=== PATIENT | male | born 1985 | race Caucasian/White ===

== ENCOUNTER 2025-06-07 12:13 | Observation (INO) | payer OTHER, SELFPAY ==
[2025-06-07] VITALS (10 sets, daily range): BP systolic 100–138; BP diastolic 63–99; PULSE 28–103; RESP 17–22; TEMP 36.6–37.1; O2SAT 95–100; BMI 24.0
--- NOTE | 2025-06-07 | ECHO_ITS ---
Patient Info Name: Siva Chappell Age: 40 years : 1985 Gender: Male Ht: 64 in Wt: 144 lbs BSA: 1.73 m2 HR: 93 bpm BP: 105 / 72 mmHg Heart Rhythm: Sinus Rhythm Technical Quality: Good Exam Date: 06/07/2025 4:01 PM Patient Status: E Admit Date: 06/07/2025 Exam Type: CA echo doppler w bubble study Complete two-dimensional, color flow and Doppler transthoracic echocardiogram is performed with agitated saline. Staff Referring Physician: Jabari Sandoval Watch Assembly Instructor: Piper Andrade Attending Provider: Jabari Sandoval Contrast/Agitated Saline Contrast/Ag. Saline: Agitated Saline Amount: 20.00 ml Existing IV Access: Yes IV Access Condition: patent with no signs of infiltration Summary 1. Left ventricular systolic function is normal, estimated at 55-60. 2. The prosthetic aortic valve has calcification. 3. 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 DVI 0.125. 4. There is mild regurgitation of the prosthetic aortic valve. 5. The aortic root size at the sinus of Valsalva is mildly dilated. Left Ventricle Left ventricular chamber dimension is normal. Left ventricular systolic function is normal, estimated at 55-60. There is no increased left ventricular wall thickness. Left ventricular septal wall motion is normal. The left ventricular diastolic function is indeterminate. Right Ventricle Right ventricular chamber dimension is normal. Right ventricular systolic function is normal. Left Atria Left atrial chamber dimension is normal. Right Atria Right atrial chamber dimension is normal. Atrial Septum Intact interatrial septum visualized by agitated saline imaging. Aortic Valve The prosthetic aortic valve has calcification. 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 DVI 0.125. There is mild regurgitation of the prosthetic aortic valve. Pulmonic Valve The pulmonic valve is normal. There is no pulmonic valve stenosis. There is no pulmonic regurgitation. Mitral Valve The mitral valve has normal leaflets. There is no mitral valve stenosis. There is no mitral valve regurgitation. Tricuspid Valve The tricuspid valve leaflets are normal. There is no significant tricuspid valve stenosis. There is no tricuspid valve regurgitation. Pericardium/Pleural The pericardium appears normal. There is no pericardial effusion. Inferior Vena Cava Normal inferior vena cava with >50% collapse upon inspiration consistent with normal right atrial pressure, 5 mmHg. Aorta The aortic root size at the sinus of Valsalva is mildly dilated. The prox ascending aorta size is normal. Left Ventricular Outflow Tract Name Value Normal LVOT 2D LVOT Diameter 2.9 cm LVOT Doppler LVOT Peak Velocity 59 cm/s LVOT Peak Gradient 1 mmHg LVOT Mean Gradient 1 mmHg LVOT VTI 13 cm LVOT VTI/AV VTI Ratio 0.1 LVOT Stroke Volume 84 ml LVOT CO 6.4 l/min LVOT CI 3.7 l/min/m2 Pulmonic Valve Name Value Normal RVOT Doppler RVOT Peak Velocity 53 cm/s RVOT Peak Gradient 1 mmHg PV Doppler PV Peak Velocity 73 cm/s PV Peak Gradient 2 mmHg Mitral Valve Name Value Normal MV Diastolic Function MV E Peak Velocity 91 cm/s MV A Peak Velocity 43 cm/s MV E/A 2.1 MV Decel Time (PW) 135 ms MV Annular TDI MV E/e' (Septal) 18.4 MV E/e' (Lateral) 18.3 MV E/e' (Average) 18.3 Tricuspid Valve Name Value Normal Estimated PAP/RSVP RA Pressure 5 mmHg <=5 TV Annular TDI TV Lateral Shawanda s' Velocity 8.8 cm/s >=9.5 Aorta Name Value Normal Ascending Aorta Ao Root Diameter (MM) 2.6 cm Ao Root Diam Index (MM) 1.5 cm/m2 Aortic Valve Name Value Normal AV Doppler AV Peak Velocity 493 cm/s AV Peak Gradient 97 mmHg AV Mean Gradient 69 mmHg AV VTI 104 cm AV Area (Cont Eq VTI) 0.8 cm2 >=3.0 AV Area (Cont Eq Filipe) 0.8 cm2 AV DI (Filipe) 0.12 AV Regurgitation 2D LVOT Area 6.4 cm2 Ventricles Name Value Normal LV Dimensions 2D/MM IVS Diastolic Thickness (2D) 0.8 cm 0.6-1.0 LVID Diastole (2D) 5.6 cm 4.2-5.8 LVIW Diastolic Thickness (2D) 0.8 cm 0.6-1.0 LVID Systole (2D) 4.0 cm 2.5-4.0 LVOT Diameter 2.9 cm LV Mass (2D Cubed) 170.90 g 88.00-224.00 LV Mass Index (2D Cubed) 99 g/m2 49-115 Relative Wall Thickness (2D) 0.30 <=0.42 LV Fractional Shortening/Ejection Fraction 2D/MM LV Fractional Shortening (2D) 29 % 25-43 LV EF (2D Teichholz) 55 % LV Diastolic Volume (4C MOD) 113 ml LV EF (4C MOD) 51 % LV Diastolic Volume (2C MOD) 118 ml LV EF (2C MOD) 51 % LV Diastolic Volume (BP MOD) 119 ml 62-150 LV Diastolic Volume Index (BP MOD) 69 ml/m2 34-74 LV Systolic Volume (BP MOD) 58 ml 21-61 LV Systolic Volume Index (BP MOD) 33 ml/m2 11-31 LV EF (BP MOD) 51 % 52-72 LV Diastolic Length (4C) 8.9 cm LV Systolic Length (4C) 7.6 cm LV Stroke Volume (4C MOD) 57 ml Atria Name Value Normal LA Dimensions LA Dimension (MM) 3.3 cm 3.0-4.0 LA Volume (4C A-L) 39 ml LA Volume (BP A-L) 46 ml RA Dimensions RA Area (4C) 13.5 cm2 <=18.0 Report Signatures
--- NOTE | ~2025-06-07 | CT_ITS ---
EXAMINATION: CTA chest PE protocol, 06/07/2025 13:33 CDT HISTORY: Exertional shortness of breath and chest pain COMPARISON: No comparisons available. TECHNIQUE: CTA examination is obtained with contrast CTA examination technique is performed with arterial phase of contrast-enhancement. 3-D reconstruction with thin MIP axial and MPR coronal imaging is provided Isovue 300, 92cc injected IV. One or more of the following dose reduction techniques were used: automated exposure control, adjustment of the mA and/or kV according to patient size, use of iterative reconstruction technique. FINDINGS: No significant coronary calcification is present ([id number]) LUNGS: No tracheomalacia. No bronchiectasis. Mild pulmonary venous congestion. HEART AND PERICARDIUM: Mild cardiomegaly contrast bolus adequate, no pulmonary embolism identified. AORTA: Normal caliber aorta.. PULMONARY ARTERIES: No pulmonary embolism ADENOPATHY/MEDIASTINUM: None. LIMITED VIEWS OF THE ABDOMEN: Within normal limits. OSSEOUS STRUCTURES: No sclerotic or lytic lesions. No acute rib fractures. Poststernotomy changes. OVERLYING SOFT TISSUES: Unremarkable. THYROID: The thyroid is unremarkable. IMPRESSION: Negative for pulmonary embolism. Mild CHF Reviewed, dictated and finalized at location P.
--- NOTE | ~2025-06-07 | XR_ITS ---
EXAMINATION: XR chest 1V portable COMPARISON: No comparisons available. HISTORY: SOB FINDINGS: The lungs are clear, no effusion. No pneumothorax. Heart is normal size. Mediastinal and hilar contours are within normal limits. Poststernotomy Miscellaneous: None Impression: No acute cardiopulmonary abnormality. Reviewed, dictated and finalized at location P. Impression: No acute cardiopulmonary abnormality.
--- OUTSIDE RECORDS SUMMARY | 2025-06-07 12:40 | XMS_ITS | Clinical Summary ---
Author Organization [facility] [employer] Address [address] [place] [address] Care Team Providers Care Flooring Machine Operator Name Role Phone Raffy Milan MD Primary Care Provider Source Comments [facility] [employer],non-owned Affiliates and Associated Physician Practices is amultiple site organization consisting of ambulatory clinics and hospital sitesin [place], [place], [place] and [place]. This disclosure is being madepursuant to the Care Everywhere program and may not contain all information available regarding this patient. Last updated 18.[facility] [employer] Allergies No known active allergies Medications * Be aware that medications may not be up to date on this document. Alwaysverify current medications with the patient. fluticasone propionate (FLONASE) 50 MCG/ACT nasal sprayIndications :Nasal Signs and Symptoms [place] 2 Sprays into each nostril once daily Reasons: Signs and Symptoms of Nose Diseases 1 Bottle 11/13/19 17 Active albuterol HFA (VENTOLIN HFA) 108 (90 BASE) MCG/ACT inhaler Inhale 2 Puffs by mouth every 6 hours as needed for Wheezing or Cough 1 Inhaler 1 11/13/19 17 Active lisinopril (PRINIVIL; ZESTRIL) 20 MG tablet Take 20 mg by mouth 05/19/20 16 Active warfarin (COUMADIN) 10 MG tablet Take 10 mg by mouth once 03/30/20 16 Active methotrexate (RHEUMATREX) 2.5 MG tablet Take 8 tablets by mouth every 7 days 40 tablet 5 08/18/20 19 Active esomeprazole (NEXIUM) 20 MG capsule Take 20 mg by mouth 2 times daily, before breakfast and supper Active HUMIRA PEN 40 MG/0.4ML injectionIndicat ions:Ulcerative pancolitis without complication (HCC) INJECT 40MG SUBCUTANEOUSLY EVERY 2 WEEKS 2 Pen 11 12/22/19 21 Active Social History Tobacco Use Types Packs/Day Years Used Date Smoking Tobacco: Never Smokeless Tobacco: Never Alcohol Use Standard Drinks/Week Comments Not Currently 0 (1 standard drink = 0.6 oz pur e alcohol) Sex and Gender Information Value Date Recorded Sex Assigned at Not on file Legal Sex Male 9:55 AM SALES ENABLEMENT MANAGER Gender Identity Not on file Sexual Orientation Not on file Last Filed Vital Signs Vital Sign Reading Time Taken Comments Blood Pressure 117/83 06/25/2018 10:24 AM CDT Pulse 66 06/25/2018 10:24 AM CDT Temperature 36.9 C (98.4 F) 06/25/2018 9:58 AM CDT Respiratory Rate 16 06/25/2018 10:24 AM CDT Oxygen Saturation 100% 06/25/2018 10:24 AM CDT Inhaled Oxygen Concentration - - Weight 70.3 kg (155 lb) 06/25/2018 8:08 AM CDT Height 165.1 cm (5' 5) 10/22/2017 9:43 AM SALES ENABLEMENT MANAGER Body Mass Index 25.79 10/22/2017 9:43 AM SALES ENABLEMENT MANAGER Plan of Treatment Health Maintenance Due Date Last Done Comments HIV SCREENING 2002 HEPATITIS C SCREENING 02/09/2005 DTAP/TDAP/TD VACCINES (1 - Tdap) 2006 HEPATITIS B VACCINE (1 of 3 - 19+ 3-dose series) 2006 HPV VACCINE (1 - 3-dose SCDM series) 2014 DEPRESSION SCREENING 09/08/2024 COVID-19 VACCINE ( - 2023-2 5 season) 2025 INFLUENZA VACCINE (#1) 2025 06/09/2017 ZOSTER VACCINE (1 of 2) 2037 HIB VACCINE Aged Out No longer eligi ble based on patient's age to complete this topic MENINGOCOCCAL (Group B) VACC INE SHARED DECISION-MAKING Aged Out No longer eligibl e based on patient's age to complete this topic MENINGOCOCCAL GROUPS A/C/Y/W VACCINE Aged Out No longer eligible b ased on patient's age to complete this topic PNEUMOCOCCAL VACCINE Aged Out No long er eligible based on patient's age to complete this topic Insurance [id number] [place] [address] [facility] [facility] Care Teams Flooring Machine Operator Relationship Specialty [place] [address] [place] [phone] PCP - General Internal Medicine 06/18/18
--- OUTSIDE RECORDS SUMMARY | 2025-06-07 12:40 | XMS_ITS | Encounter Summary ---
Author Organization [facility] Address [address] [place] [address] Care Team Providers Care Carbon Plant Grinder Name Role Phone Unavailable Primary Care Provider Unavailabl e Encounter Details Date Type Department Care Team (Late st Contact Info) Description 01/08/2024 Specialty Pharmacy [facility] - [address] [place] [address] Madiha Gaines, ANP [address] [facility] [address] [place] [address] Social History Tobacco Use Types Packs/Day Years Used Date Smoking Tobacco: Never Smokeless Tobacco: Never Alcohol Use Standard Drinks/Week Comments Not Currently 0 (1 standard drink = 0.6 oz pur e alcohol) Sex and Gender Information Value Date Recorded Sex Assigned at Not on file Legal Sex Male 12:10 PM BELT POLISHER Gender Identity Not on file Sexual Orientation Not on file documented as of this encounter Plan of Treatment Not on file documented as of this encounter Visit Diagnoses Not on filedocumented in this encounter
--- OUTSIDE RECORDS SUMMARY | 2025-06-07 12:40 | XMS_ITS | Clinical Summary ---
Author Organization [facility] [address] Address [address] [place] [address] Care Team Providers Care Airline Lounge Receptionist Name Role Phone Raffy Milan MD Primary Care Provider Allergies No known active allergies Medications esomeprazole DR (NexIUM) 40 mg capsule take 1 capsule by oral route once a day 30 1 05/03/20 16 Active Additional Information Patient taking differently: 20 mg oral, Reported on 08/09/2024 aspirin 81 mg tablet Take one by mouth one time per day 0 0 07/24/20 07 Active adalimumab (HUMIRA PEN) 40 mg/0.8 mL pen injector kit 0.8 mL (40 mg total) Inject once every two weeks Active carvedilol (COREG) 3.125 mg tablet Take 1 tablet (3.125 mg total) by mouth 2 (two) times a day with meals Active vardenafiL (LEVITRA) 20 mg tablet vardenafil 20 mg tablet TAKE 1 TABLET BY MOUTH ONCE DAILY NEEDED FOR 30 DAYS Active amoxicillin (AMOXIL) 500 mg tablet/capsule Take 4 caps (2000 mg) 1 hour prior to procedure on both days. 8 tablet/caps ule 08/26/20 22 Active lisinopriL (PRINIVIL,ZEST RIL) 20 mg tablet Take 1 tablet by mouth once daily 90 tablet 3 05/26/20 25 Active warfarin (COUMADIN) 10 mg tablet TAKE 1 TABLET BY MOUTH ONCE DAILY. TAKE 15 MG ON MONDAYS AND 10 MG (1 TABLET) ALL OTHER DAYS OR DIRECTED BY PHYSICIAN 7 tablet 06/01/20 25 Active lisinopriL (PRINIVIL,ZEST RIL) 20 mg tablet Take 1 tablet by mouth once daily 90 tablet 02/15/20 25 025 Discontinued warfarin (COUMADIN) 10 mg tablet TAKE 1 TAB(10 MG TOTAL)BY MOUTH DAILY TAKE 15 MG ON MONDAYS AND 10 MG ALL OTHER DAYS OR DIRECTED BY PHYSICIAN 32 tablet 04/07/20 25 025 Discontinued Active Problems Problem Noted Date Diagnosed Date H/O cardiomyopathy 08/09/2022 RBBB 12/04/2020 Status post mechanical aortic valve replacement 03/14/2017 Ulcerative colitis 03/14/2017 Chronic anticoagulation 09/11/2015 Overview (12/13/2016): Chronic anticoagulation Benign hypertension 09/11/2015 Overview (12/13/2016): HTN (hypertension), benign Noncompliance with treatment 09/11/2015 Overview (12/13/2016): Noncompliance History of open heart surgery 09/11/2015 Overview (12/13/2016): H/O mechanical aortic valve replacement Mitral valve disease 01/22/2014 Overview (12/11/2016): MITRAL VALVE DISORDER Aortic valve disorder 01/22/2014 Overview (12/11/2016): AORTIC VALVE DISORDER Primary cardiomyopathy 01/22/2014 Overview (12/11/2016): PRIM CARDIOMYOPATHY NEC Congenital insufficiency of aortic valve 014 Overview (12/13/2016): KALEB AORTA VALV INSUFFIC Shortness of breath 11/22/2010 Encounters Date Type Department Care Team Description 04/01/2025 Anticoagulation Visit [facility] Cardiology at [address] [place] [address] Inez Wilkerson, RN Aortic valve disorder (Primary Dx); Chronic anticoagulation from Last 3 Months Surgical History Surgery Date Site/Laterality Comments OTHER SURGICAL HISTORY 2006 AVR-mechanical OTHER SURGICAL HISTORY 2010 [facility]do AVR mechanical OTHER SURGICAL HISTORY Valve Replacement [facility] AVR Medical History Medical History Date Comments Hypertension Hypertension Family History Medical History Relation Name Comments No Known Problems Father No Known Problems Mother Relation Name Status Comments Father Alive Mother Alive Social History Tobacco Use Types Packs/Day Years Used Date Smoking Tobacco: Never Tobacco Cessation:Counseling Given: Not Answered Alcohol Use Standard Drinks/Week Comments Yes 0 (1 standard drink = 0.6 oz pur e alcohol) Sex and Gender Information Value Date Recorded Sex Assigned at Not on file Legal Sex Male 7:10 PM SNAPPER ON Gender Identity Not on file Sexual Orientation Not on file Obstetrics History Last Filed Vital Signs Vital Sign Reading Time Taken Comments Blood Pressure 110/72 08/09/2024 10:40 AM SNAPPER ON Pulse 92 08/09/2024 10:40 AM SNAPPER ON Temperature 36.7 C (98 F) 07/26/2020 11:19 AM SNAPPER ON Respiratory Rate 14 03/14/2017 10:21 AM CDT Oxygen Saturation 98% 08/09/2024 10:40 AM SNAPPER ON Inhaled Oxygen Concentration - - Weight 66.2 kg (146 lb) 08/09/2024 10:40 AM SNAPPER ON Height 165.1 cm (5' 5) 08/09/2024 10:40 AM SNAPPER ON Body Mass Index 24.3 08/09/2024 10:40 AM SNAPPER ON Plan of Treatment Health Maintenance Due Date Last Done Comments Depression Screening 1985 Hepatitis C Screening 1985 Varicella Vaccines (1 of 2 - 13+ 2-dose series) 02/15/2000 Regular Well Visit/Exam 18-64 2005 HPV Vaccines (1 - 3-dose SCDM series) 2014 DTaP/Tdap/Td Vaccine (7 - Td or Tdap) 09/08/2019 09/08/2009, 06/16/1992, 02/25/1989, Additional history exists Influenza Vaccine (#1) 2025 09/10/2021, 2016 Hepatitis B Screening Completed 02/03/1997 , 10/14/1996, 08/26/1996 Pneumococcal vaccine <65 Aged Out No longer eligible based on patient's age to complete this topic Procedures Procedure Name Priority Date/Time Associated Diagnosis Comments PROTIME-INR Routine 04/01/2025 10:19 AM CDT Status post mechanical aortic valve replacement from Last 3 Months Results * (ABNORMAL) Protime-INR (04/01/2025 10:19 AM CDT) INR 1.8(H) [facility] (List[facility])Zee Shah Comment: Reference Range 0.9-1.1 Moderate-intensity Warfarin Therapy 2.0-3.0 Higher-intensity Warfarin Therapy 3.0-4.0 PT 18.8(H) 9.0 - 11.5 sec [facility] (List[facility])Zee matteo Shah Comment: For additional information, please refer to http://education.[employer]/faq/FLV191 (This link is being provided for informational/ educational purposes only.) Blood 04/01/2025 10:1 9 AM CDT 04/01/2025 10:19 AM CDT Brent Melendez MD LAB BLOOD ORDERABLES Fin al Result Performing Organization Address City/State/[facility] Co de Phone Number [facility] [address] [place] [address] from Last 3 Months Insurance [facility] HMO/PPO Address: [facility] [address] [place], [place] [id number] [place] [address] Care Teams Airline Lounge Receptionist Relationship Specialty Start Date End Date Raffy Milan MD [address] [place] [address] PCP - General Internal Medicine 07/06/18
--- OUTSIDE RECORDS SUMMARY | 2025-06-07 12:40 | XMS_ITS | Encounter Summary ---
Author Organization [facility] Address [address] [place] [address] Care Team Providers Care Math Coach Name Role Phone Unavailable Primary Care Provider Unavailabl e Encounter Details Date Type Department Care Team (Late st Contact Info) Description 05/05/2025 Results Follow-Up [facility] [address] [facility] [address] [place] [address] [place] [address] [facility] [address], [place] [address] PATHOLOGY Social History Tobacco Use Types Packs/Day Years Used Date Smoking Tobacco: Never Smokeless Tobacco: Current Chew Alcohol Use Standard Drinks/Week Comments Not Currently 0 (1 standard drink = 0.6 oz pur e alcohol) Feeling Safe Answer Date Recorded Are you in a relationship wi th someone who hurts you emotionally and/or physically? No 04/29/2025 Sex and Gender Information Value Date Recorded Sex Assigned at Not on file Legal Sex Male 12:10 PM CLOTH CHECKER Gender Identity Not on file Sexual Orientation Not on file documented as of this encounter Miscellaneous Notes * Result Encounter Note - China Culp MD - 05/05/2025 11:29 AM CDT Siva, The pathology of your recent colonoscopy is consistent with the endoscopic findings. Just inflammation in the rectum. No infection or cancerous growth. Please let me know if you have any questions. China Culp MD [facility] Gastroenterology documented in this encounter Plan of Treatment Not on file documented as of this encounter Visit Diagnoses Not on filedocumented in this encounter
--- OUTSIDE RECORDS SUMMARY | 2025-06-07 12:40 | XMS_ITS | Clinical Summary ---
Author Organization [facility] Address [address] [place] [id number] Phone Care Team Providers Care Boiler Room Helper Name Role Phone Unavailable Primary Care Provider Unavailabl e Allergies No known active allergies Medications carvediloL (COREG) 3.125 mg tablet TAKE ONE TABLET BY MOUTH TWICE DAILY FOR BLOOD PRESSURE & HEART 2 Active folic acid (FOLVITE) 1 mg tablet folic acid 1 mg tablet Active Viagra 100 mg tablet Take 1 TABLET 1 HOUR PRIOR TO SEXUAL ACTIVITY DIRECTED, BUT NOT TO EXCEED MORE THAN 1 IN 24 HOURS. MUST LAST 30 DAYS 2 Active warfarin (COUMADIN) 10 mg tablet TAKE 1 TABLET BY MOUTH ONCE DAILY DIRECTED 2 Active esomeprazole (NexIUM) 20 mg Capsule, Delayed Release(E.C.) Take 1 Capsule (20 mg) by mouth daily before breakfast. 90 Capsule 3 2 Active ergocalciferol (VITAMIN D2) 50,000 unit capsuleIndicatio ns:Ulcerative pancolitis with complication (CMS/HCC) Take 1 Capsule (50,000 Units) by mouth every 7 days. 12 Capsule 3 4 Active adalimumab (Humira,CF, Pen) 80 mg/0.8 mL Pen Injector KitIndications:U lcerative pancolitis with complication (CMS/HCC) Starter Pack - 160mg (80mg pen x 2) on week 0, then 80mg injection pen on wk 2. Then 40mg injection on week 4 then every 2 weeks (ordered separately) 3 Each 4 Active sod picosulf-mag ox-citric ac (Clenpiq) 10 mg-3.5 gram- 12 gram/175 mL Solution Take 175 mL by mouth one time for 1 dose. Follow prescribing physician's instructions ONLY. These were sent by mail or email. 350 mL 5 Active adalimumab (HUMIRA) 40 mg/0.4 mL Pen Injector Kit Inject 0.4 mL (40 mg) by subcutaneous injection every 2 weeks. 2 Each 11 5 Active Active Problems Problem Noted Date Diagnosed Date Presence of prosthetic heart valve 09/09/2018 Status post mechanical aortic valve replacement 03/14/2017 Ulcerative colitis 03/14/2017 Congenital insufficiency of aortic valve 014 Overview (03/20/2022): KALEB AORTA VALV INSUFFIC Encounters Date Type Department Care Team Description 05/10/2025 External Device Data ST[facility] ABSTRACTION Provider, Abstract 05/05/2025 Results Follow-Up [facility] [address] [place] [address] [facility] [address] [place] [address] China Culp MD PATHOLOGY 05/03/2025 External Device Data STL ABSTRACTION Provider, Abstract 04/29/2025 9:49 AM CDT Anesthesia Event [facility] [address] [place] [address] [place] [address] Rachel Lopez MD Rheder, Bianca K, AA-C 04/29/2025 9:40 AM CDT - 04/29/2025 10:20 AM CDT Surgery [facility] [address] [place] [address] [facility] [place] [address] China Culp MD COLONOSCOPY 04/29/2025 9:06 AM CDT - 04/29/2025 11:02 AM CDT [facility] [address] [place] [address] [place] [address] China Culp MD Ulcerative pancolitis with complication (CMS/HCC) Discharge Disposition: Home or Self Care 04/29/2025 Orders Only [facility] [place] [address] [facility] [address] [place] [address] China Culp MD Ulcerative pancolitis with complication (CMS/HCC) (Primary Dx) from Last 3 Months Immunizations Immunization Administration Dates Next Due (ADACEL/BOOSTRIX)(10 YR UP) TDAP VACCINE, 0.5ML, IM 09/08/2009 (M-M-R II/PRIORIX)(12 MO UP) MEASLES, MUMPS AND RUBELLA VIRUS VACCINE, 0.5 ML IM/SUBCUT 06/16/1992,02/25/1989 (RECOMBIVAX HB/ENGERIX-B)(0- 19 YRS) HEPATITIS B VACCINE 5 MCG/0.5 ML OR 10 MCG/0.5 ML PED OR ADOL 3 DOSE (PF), IM 02/03/1997,10/14/1996,08/26/1996 Diptheria, Tetanus Toxoids, And Whole Cell Pertussis Vaccine (DTP), for intramuscular use 06/16/1992,02/25/1989,09/20/1988,09/25,1987 HIB, Unspecified Formulation 09/20/1988 INFLUENZA VACCINE QUADRIVALE NT 6 MOS UP IM 09/10/2021,06/09/2017 Poliovirus Vaccine Live Oral 06/16/1992, 02/25/1989,1987,07/24 Family History Medical History Relation Name Comments Colon Cancer Neg Hx Social History Tobacco Use Types Packs/Day Years Used Date Smoking Tobacco: Never Smokeless Tobacco: Current Chew Tobacco Cessation:Ready to Q uit: Not Asked; Counseling Given: Not Answered Alcohol Use Standard Drinks/Week Comments Not Currently 0 (1 standard drink = 0.6 oz pur e alcohol) Feeling Safe Answer Date Recorded Are you in a relationship wi th someone who hurts you emotionally and/or physically? No 04/29/2025 Sex and Gender Information Value Date Recorded Sex Assigned at Not on file Legal Sex Male 12:10 PM [employer] Gender Identity Not on file Sexual Orientation Not on file Last Filed Vital Signs Vital Sign Reading Time Taken Comments Blood Pressure 122/81 04/29/2025 10:38 AM CDT Pulse 66 04/29/2025 10:38 AM CDT Temperature 35.9 C (96.7 F) 04/29/2025 10:13 AM CDT Respiratory Rate 16 04/29/2025 10:38 AM CDT Oxygen Saturation 99% 04/29/2025 10:38 AM CDT Inhaled Oxygen Concentration - - Weight 65.8 kg (145 lb) 04/29/2025 9:24 AM CDT Height 162.6 cm (5' 4) 04/29/2025 9:24 AM CDT Body Mass Index 24.89 04/29/2025 9:24 AM CDT Plan of Treatment Health Maintenance Due Date Last Done Comments HPV VACCINES (1 - 3-dose SCD M series) 2014 DTAP/TDAP/TD VACCINES (7 - T d or Tdap) 09/08/2019 09/08/2009, 06/16/1992, 02/25/1989, Additional history exists INFLUENZA VACCINE (#1) 2025 09/10/2021, 2016 HEPATITIS B VACCINES Completed 02/03/1997, 10/14/1996, 08/26/1996 Procedures Procedure Name Priority Date/Time Associated Diagnosis Comments COLONOSCOPY REPORT 04/29/2025 10 :14 AM CDT PATHOLOGY Pathology 04/29/2025 10:06 AM CDT Ulcerative pancolitis with complication (CMS/HCC) [place] COLONOSCOPY FLX DX W/COLLJ SPEC WHEN PFRMD 04/29/2025 9:40 AM CDT Ulcerative pancolitis with complication (CMS/HCC) Case Notes rs from 07-07-24 to 2-7-25 rs from 2-7-25 to 4--25/rf from Last 3 Months Results * COLONOSCOPY REPORT (04/29/2025 10:14 AM CDT) Narrative Procedure Note China Culp MD - 04/29/2025 10:14 AM CDT [facility] Endoscopy Patient Name: Siva Chappell Procedure Date: 04/29/2025 Date of : 1985 Attending MD: China Culp MD, Procedure: Colonoscopy Indications: Chronic ulcerative proctosigmoiditis Providers: China Culp MD Referring MD: Medicines: Monitored Anesthesia Care Complications: No immediate complications. Procedure: Informed consent was obtained for the procedure, including moderate sedation after risks were discussed. Based on the pre-procedure assessment, including review of the patient's medical history, medications, allergies, and review of systems, the patient was deemed to be an appropriate candidate for sedation. A timeout was performed. Continuous ECG monitoring, pulse oximetry, blood pressure monitoring, and direct observation were performed. The Colonoscope was introduced through the anus and advanced to the terminal ileum. The colonoscopy was performed without difficulty. The patient tolerated the procedure well. The quality of the bowel preparation was good. The terminal ileum, ileocecal valve, appendiceal orifice, and rectum were photographed. Estimated Blood Loss: Estimated blood loss was minimal. Findings: The perianal and digital rectal examinations were normal. The terminal ileum appeared normal. Inflammation was found in a continuous and circumferential pattern from the anus to the descending colon. This was graded as De La Rosa Score 3 (severe, with spontaneous bleeding, ulcerations). Biopsies were taken with a cold forceps for histology. The exam was otherwise without abnormality on direct and retroflexion views. Impression: - The examined portion of the ileum was normal. 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 Biopsied. - The examination was otherwise normal on direct and retroflexion views. Recommendation: - Patient has a contact number available for emergencies. The signs and symptoms of potential delayed complications were discussed with the patient. Return to normal activities tomorrow. Written discharge instructions were provided to the patient. - Resume previous diet. - Continue present medications. - Await pathology results. - Repeat colonoscopy for surveillance for assessment of response to therapy. China Culp MD 04/29/2025 10:14:11 AM This report has been signed electronically. Number of Addenda: [address]; [place] [address] us China Culp MD GI PROCEDURE ORDERABLES F inal Result * PATHOLOGY (04/29/2025 10:06 AM CDT) CASE REPORT Surgical Pathology Report Case: [id number] Authorizing Provider: China Culp MD Collected: 04/29/2025 10:06 AM Ordering Location: [facility] [address] Received: 04/29/2025 11:02 AM Pathologist: Nicole Christine MD Specimens: A) - Colon, bx B) - Colon, rectosigmoid, bx 6:27 PM T [facility] FINAL DIAGNOSIS Large intestine, site undesignated, biopsy: - No significant pathologic findings. Large intestine, rectosigmoid, biopsy: - Chronic active colitis/proctitis, moderate to severe; negative for dysplasia. 6:27 PM T [facility] at 1827 CDT GROSS DESCRIPTION Two containers are received, each labeled Siva Chappell. Received in the first container additionally labeled colon biopsy is a 0.4 x 0.2 x 0.2 cm fragment of red-ann tissue, which submitted entirely labeled A1. Received in the second container additionally labeled rectosigmoid biopsy are 7 fragments of ann tissue, ranging from less than 0.1 to 0.2 cm in greatest dimension, which are submitted entirely labeled B1. KA 6:27 PM T [facility] Souche [facility] MICROSCOPIC DESCRIPTION Received are slides labeled [id number], Siva Chappell. The submitted colon biopsy contains a piece of colonic mucosa. Intraepithelial and lamina propria inflammation in areas appear mildly, but not significantly increased, and notably shows a slight prominence in eosinophils, which may be normal within the right colon. Active inflammation is inconspicuous. Features of chronicity, granulomas and thickening of the subepithelial basement membrane are not identified. The submitted colon, rectosigmoid biopsy contains multiple pieces of colonic mucosa, associated with diffuse moderate to focally prominent full-thickness increase in interstitial chronic inflammation, patchy mild to moderate cryptitis and intraepithelial acute inflammation and reactive changes. There are mild crypt architectural distortion, with focal short fall and focally conspicuous basal plasmacytosis and focal Paneth cell metaplasia, features supportive of chronic mucosal injury. Granulomas and viral cytopathic changes are not appreciated. Additionally, CMV immunohistochemical stain is interpreted as negative. There is no evidence of dysplasia or malignancy. 6:27 PM T [facility] Souche [facility] OPERATIVE PROCEDURE 1: COLONOSCOPY 5 6:27 PM CDT [facility] CLINICAL INFORMATION Ulcerative Colitis K51.019-Ulcerative pancolitis with complication (CMS/HCC) 5 6:27 PM CDT [facility] COMMENT Special stain, immunohistochemical, and/or in situ hybridization results are interpreted with controls that demonstrate appropriate staining reactions. Note on use of immunohistochemistry reagents and in situ hybridization probes: These tests were developed and their performance characteristics determined by [facility], Department of Laboratory Medicine. It has not been cleared or approved by the U.S. Food and Drug Administration. The FDA has determined that such clearance or approval is not necessary. The test is used for clinical purposes. It should not be regarded as investigational or for research. This laboratory is certified to perform high complexity testing. Frozen section/operating room consultation, gross examination and dissection, and case sign out may have been performed in part or completely in the following laboratories: [facility], [place] #[id number] [address] [place] [address] [facility], [place] #[id number] [address] [place] [address] [facility], [place] #[id number] [id number] [place] [id number] This report was created with the [employer] voice-activated dictation system. Inherent to this system is the possibility of syntax, grammar, punctuation and other errors that could impact the interpretation of the report. If there are interpretative questions about aspects of this report, please contact the performing pathologist. 5 6:27 PM T [facility] Tissue SPECIMEN FROM COLON / Unknown Collection / Unknown 04/29/2025 10:06 AM CDT 04/29/2025 11:02 AM CDT Comment:Ulcerative Colitis Tissue specimen (specimen) (Colon, rectosigmoid) Collection / Unknown 04/29/2025 10:06 AM CDT 04/29/2025 11:02 AM CDT Comment:Ulcerative Colitis China Culp MD PATHOLOGY/CYTOLOGY ORDERA BLES Final Result Performing Organization Address City/State/[facility] Co de Phone Number [facility]# [id number] [address] [place] [address] from Last 3 Months Insurance Member Subscriber Plan / Payer (Ef fective 2023-Present) Name:Siva Chappell Relation to Subscriber:Self Name:Siva Chappell Payer ID:[id number] (NAIC) Type:HMO Address: [facility] [id number] [employer] RX Member Subscriber Plan / Payer (Ef fective 2023-Present) Name:Siva Chappell Relation to Subscriber:Self Name:Siva Chappell Payer ID:Not on file Group ID:[id number] Type:RX Commercial Address: [place] Advance Directives For more information, please contact: [phone] * Full Code (Latest Code Status on File) Date Activated Date Inactivated Comments 04/29/2025 9:26 AM 04/29/2025 1:02 PM
--- NOTE | 2025-06-07 12:53 | ED_ITS ---
HPI - General Adult General Chief complaint: Shortness of Breath/Dyspnea Stated complaint: sob Time Seen by Provider: 06/07/25 12:15 History of Present Illness HPI narrative: 40-year-old male presents to the emergency department for evaluation for worsening exertional shortness of breath. Patient reports last week he suspected he had a viral illness. Patient states over the course of this week he has had worsening exertional shortness of breath and upper chest tightness. Patient states this is reminiscent his prior episodes of pneumonia. Patient does have a cardiac history of valve repair approximately 15 years ago Related Data Allergies Allergy/AdvReac Type Severity Reaction Status Date / Time No Known Allergies Allergy Mild Verified 06/07/25 12:21 Review of Systems 2 Review of Systems: All systems reviewed & are unremarkable except as noted in HPI and below Exam 2 Narrative: APPEARANCE: Well appearing, no pain, no distress, well-nourished. HEAD: normocephalic, atraumatic. EYES: PERRLA/EOMI, conjunctivae clear. NOSE: Normal no drainage EARS:TMS clear with good light reflex. THROAT: Pharynx clear, no exudate. NECK: Supple. No adenopathy, no masses. RESPIRATORY: Airway patent, respirations nonlabored. Clear to auscultation bilaterally, no rales, rhonchi, wheezing. CARDIOVASCULAR: Regular rate and rhythm without murmurs rubs or gallops. ABDOMINAL: Soft, nontender, nondistended, normal bowel sounds MUSCULOSKELETAL: Moves all extremities. Strength/ROM intact, No edema, No calf tenderness. NEURO: Alert. Cranial nerves II through XII intact. SKIN: Warm, dry. Normal Color Course Vital Signs Vital signs: Vital Signs Temperature 98.7 F 06/07/25 12:17 Pulse Rate 92 06/07/25 12:17 Respiratory Rate 22 H 06/07/25 12:17 Pulse Oximetry 98 06/07/25 12:17 Oxygen Delivery Room Air 06/07/25 12:17 Temperature 98.7 F 06/07/25 12:17 Pulse Rate 85 06/07/25 16:06 Respiratory Rate 18 06/07/25 16:06 Blood Pressure 111/68 06/07/25 16:06 Pulse Oximetry 97 06/07/25 16:06 Oxygen Delivery Room Air 06/07/25 12:40 Medical Decision Making [facility] Narrative Medical decision making narrative: 40-year-old male presents emergency department for evaluation for exertional shortness of breath and chest pain. Symptoms started after a recent viral illness. Patient's initial troponin was mildly elevated at 0.040. CTA was negative for pulmonary embolism but does show evidence of congestive heart failure. Patient is currently afebrile with no leukocytosis hemoglobin of 14.9. Patient has an INR of 1.7 but patient is on Coumadin so patient is mildly subtherapeutic. Patient's repeat troponin at 3:00 a.m. was 0.059. Patient's proBNP was elevated at 2890. Patient was negative for influenza RSV and for COVID. Cardiology was consulted. Plan was to hold off on anticoagulation until his INR and 3 hour troponin were resulted. Differential Diagnosis Differential Diagnosis: Pneumonia, CHF, pulmonary embolism, COVID, RSV, influenza, ACS Vital Signs Vital Signs: Vital Signs Temperature 98.7 F 06/07/25 12:17 Pulse Rate 92 06/07/25 12:17 Respiratory Rate 22 H 06/07/25 12:17 Pulse Oximetry 98 06/07/25 12:17 Oxygen Delivery Room Air 06/07/25 12:17 Temperature 98.7 F 06/07/25 12:17 Pulse Rate 85 06/07/25 16:06 Respiratory Rate 18 06/07/25 16:06 Blood Pressure 111/68 06/07/25 16:06 Pulse Oximetry 97 06/07/25 16:06 Oxygen Delivery Room Air 06/07/25 12:40 Lab Data Lab results reviewed: Yes I reviewed the patient's lab results. 06/07/25 12:53 06/07/25 12:53 Labs: Lab Results 06/07/25 06/07/25 Range/Units 12:46 12:53 WBC 8.8 (4.5-10.0) K/mm3 RBC 5.08 (4.6-6.20) M/mm3 Hgb 14.9 (14.0-18.0) g/dL Hct 45.2 (42.0-52.0) % MCV 89.0 (80-100) fl MCH 29.3 (26-34) pg MCHC 33.0 (32-36) g/dl RDW 13.5 (11.5-14.5) % Plt Count 204 (150-375) k/mm3 MPV 10.7 H (7.4-10.4) fl Immature Gran % (Auto) 0.3 (0-0.5) % Neut % (Auto) 62.5 (45.5-73.1) % Lymph % (Auto) 19.7 (18.3-44.2) % [place] % (Auto) 10.1 H (2.6-8.5) % Eos % (Auto) 6.5 H (0-4.4) % Baso % (Auto) 0.9 (0.2-1.2) % Lymph # (Auto) 1.73 (0.9-3.2) K/mm3 [place] # (Auto) 0.9 H (0.1-0.6) K/mm3 Eos # (Auto) 0.6 H (0-0.3) K/mm3 Baso # (Auto) 0.1 (0.0-0.1) K/mm3 Abs Immat Gran (auto) 0.03 (0.00-0.031) K/mm3 Absolute Neuts (auto) 5.5 (1.3-6.7) K/mm3 Absolute Nucleated RBC 0.000 (0.0-0.012) K/mm3 Nucleated RBC % 0.0 (0.0-0.2) % PT 19.3 H (11.1-14.7) Seconds INR 1.7 APTT 31.8 (22.3-36.8) Seconds Sodium 137 (137-145) mmol/L Potassium 3.9 (3.4-5.0) mmol/L Chloride 105 (98-107) mmol/L Carbon Dioxide 22 (22-30) mmol/L Anion Gap 10 (4-12) mmol/L BUN 14 (9-20) mg/dL Creatinine 1.00 (0.7-1.3) mg/dL Estim Creat Clear Calc 74 ml/min Estimated GFR > 60 (59 - ) Glucose 121 H (65-110) mg/dL Calcium 8.6 (8.4-10.2) mg/dL Total Bilirubin 0.4 (0.2-1.3) mg/dL AST 28 (17-59) U/L ALT 27 (6-50) U/L Alkaline Phosphatase 54 (38-126) U/L Troponin I 0.040 H* (0.000-0.034) ng/mL NT-Pro-B Natriuret Pep 2890 H (19.9-100) pg/mL Total Protein 7.4 (6.3-8.2) g/dL Albumin 4.1 (3.5-5.1) g/dL Influenza A (RT-PCR) Negative (Negative) Influenza B (RT-PCR) Negative (Negative) RSV (RT-PCR) Negative (Negative) SARS-CoV-2 RNA (RT-PCR) Negative (Negative) Imaging Data Radiologist's impression: Impressions Chest X-Ray 06/07/25 12:31 Impression: No acute cardiopulmonary abnormality. Chest CTA 06/07/25 14:02 IMPRESSION: Negative for pulmonary embolism. Mild CHF ECG Data EKG #1: EKG Interpretation: normal rate, sinus rhythm, no ectopy, widened QRS, RBBB and no acute changes Discharge Plan Discharge Clinical Impression: Elevated troponin, Chest pain Patient Disposition: Still a Patient Condition: Serious Quality HEART score for chest pain patients History: moderately suspicious ECG: non specific repolarization disturbance/LBTB/PM Age: < or = to 45 years Risk factors: 1 or 2 risk factors Troponin: > 1 and < 3x normal limit Heart score: 4
[2025-06-07] MEDS: HYDROmorphone HCL INJ (*CRX) 1 MG/ML SYR 0.5 MG IV PUSH (12:55)
[2025-06-07 13:01] LABS: Hematocrit 45.2 % (42.0-52.0); Hemoglobin 14.9 g/dL (14.0-18.0); Immature Granulocyte Percent A 0.3 % (0-0.5); Lymphocytes Absolute Auto 1.73 K/mm3 (0.9-3.2); Mean Corpuscular HGB Conc 33.0 g/dl (32-36); Mean Corpuscular Hemoglobin 29.3 pg (26-34); Mean Corpuscular Volume 89.0 fl (80-100); Nucleated Red Blood Cells Absolute Auto 0.000 K/mm3 (0.0-0.012); Nucleated Red Blood Cells Perc 0.0 % (0.0-0.2); Platelet Count Result 204 k/mm3 (150-375); Red Blood Count 5.08 M/mm3 (4.6-6.20); White Blood Count 8.8 K/mm3 (4.5-10.0)
[2025-06-07 13:12] LABS: INR 1.7; Partial Thromboplastin Time 31.8 Seconds (22.3-36.8); Prothrombin Time 19.3 Seconds (11.1-14.7)
[2025-06-07 13:16] LABS: Alanine Aminotransferase 27 U/L (6-50); Albumin Level 4.1 g/dL (3.5-5.1); Alkaline Phosphatase 54 U/L (38-126); Anion Gap 10 mmol/L (4-12); Aspartate Amino Transferase 28 U/L (17-59); Bilirubin,Total 0.4 mg/dL (0.2-1.3); Blood Urea Nitrogen 14 mg/dL (9-20); Calcium 8.6 mg/dL (8.4-10.2); Carbon Dioxide 22 mmol/L (22-30); Chloride 105 mmol/L (98-107); Estimated CRCL calculation 74 ml/min; Estimated Glomerular Filt Rate > 60; Glucose 121 mg/dL (65-110); Potassium 3.9 mmol/L (3.4-5.0); Sodium 137 mmol/L (137-145); Total Protein 7.4 g/dL (6.3-8.2)
[2025-06-07 13:33] LABS: Troponin I 0.040 ng/mL (0.000-0.034)
[2025-06-07 13:35] LABS: Influenza A QL RT-PCR Negative (Negative); Influenza B QL RT-PCR Negative (Negative); RSV RNA, RT-PCR Negative (Negative); SARS-CoV-2 RNA PCR Negative (Negative)
--- NOTE | 2025-06-07 13:46 | ECG_ITS ---
Test Date: 2025-06-07 13:51:27 Measurements Intervals [place] Rate: 91 P: 43 SC: 130 QRS: 33 QRSD: 150 T: 13 QT: 389 QTc: 479 Interpretive Statements SINUS RHYTHM POSSIBLE LEFT ATRIAL ENLARGEMENT [-0.1mV P WAVE IN V1/V2] RIGHT BUNDLE BRANCH BLOCK [120+ ms QRS DURATION, UPRIGHT V1, 40+ ms S IN I/aVL/V4/V5/V6] No previous ECG available for comparison Electronically Signed On 06-07-2025 14:46:30 CDT by Bernarda Benoit M.D.
--- NOTE | 2025-06-07 14:51 | P.HP_ITS ---
H&P: HPI History of Present Illness Date/Time: 06/07/25 14:51 Chief Complaint: Shortness of breath Narrative: 40-year-old male aortic mechanical valve with exertional shortness of breath and upper chest tightness x1 week. Patient states that him and everybody in the house had a acute illness about a week ago. He states that the rest of the symptoms however he still has shortness of breath with activities and chest tightness making it hard to breathe. Patient denies fever, chills, nausea or vomiting CBC is within normal limits, glucose 121, troponin 0.04, BNP 2890, influenza A/B, RSV, COVID negative. CTA chest shows negative for PE mild CHF. Cardiology consulted pending recommendations. Echocardiogram shows EF of 50-55%. Review of Systems Review of Systems: 12 systems were reviewed and are negativ e except for as per HPI. [facility] Social History Social History Smoking status: Never smoker Alcohol intake: never Substance use: never Substance use type: does not use Lack of Transportation: No Lack of Food: Never True Current Housing: I Have Housing Concerned About Future Housing: No Difficulty Paying Gas/Electric Bills: No Difficulty Paying for Meds: No Currently Unemployed: No Education: High School Diploma/GED Difficulty w/ Childcare or Family Care: No Spiritual care concerns: No Meds Home Medications and Allergies Home Medications ?Medication ?Instructions ?Recorded ?Confirmed ?Type adalimumab 40 mg/0.4 mL 40 mg subcut [id number] 5 06/07/25 History subcutaneous pen kit (Humira(CF) Pen) carvedilol 3.125 mg tablet 3.125 mg PO Q12H 06/07/25 0 06/07/25 History ergocalciferol (vitamin D2) 1,250 1,250 mcg PO WEEKLY 06/07/25 06/07/25 History mcg (50,000 unit) capsule lisinopril 20 mg tablet 20 mg PO DAILY 06/07/2505/11 History sildenafil 100 mg tablet 100 mg PO DAILY PRN erectile 06/07/25 06/07/25 History dysfunction warfarin 10 mg tablet 10 mg PO WEEKLY 06/07/25 History Allergies Allergy/AdvReac Type Severity Reaction Status Date / Time No Known Allergies Allergy Mild Verified 06/07/25 12:21 Vital Signs Vital Signs - 24 hr 06/07/25 12:17 06/07/25 12:40 06/07/25 12:40 Temperature 98.7 F Pulse Rate 92 100 Respiratory Rate 22 H 20 Blood Pressure 110/75 Pulse Oximetry 98 100 100 Oxygen Delivery Room Air Room Air Exam Narrative: General: well appearing, appears stated age. HEENT: normocephalic, atraumatic. Mucous membranes moist. EOMI, PERRLA, bilateral sclera anicteric, no conjunctival injection. Neck supple without JVD, lymphadenopathy, or bruit. Respiratory: clear to ascultation bilaterally. No rales/rhonic/wheezes. Cardiovascular: Regular rate and rhythm, normal S1-S2 upon ascultation. No murmurs, rubs, or clicks. PMI is nondisplaced, capillary refill less than 3 second. Abdomen: Soft, round, no pulsatile masses, nondistended and nontender. No rebound, no guarding. No CVA tenderness, no hepatosplenomegaly. Bowel sounds present to all four quadrants. No high pitch or tinkling sounds, resonant to percussion. Extremities: No cyanosis, clubbing, or edema present. Pulses are palpable 2/2. Active ROM to all four extremities. Neuro: Alert and orientated x 4. PERRLA. Cranial nerves 2-12 intact without focal deficit. Skin: Warm, dry, and intact, without rash, erythema, or lesion. Psych: pleasant, cooperative, normal speech, normal affect, no hallucinations, no dysarthia H&P: Results Labs Labs: Short CBC 06/07/25 Range/Units 12:53 WBC 8.8 (4.5-10.0) K/mm3 Hgb 14.9 (14.0-18.0) g/dL Hct 45.2 (42.0-52.0) % Plt Count 204 (150-375) k/mm3 BMP 06/07/25 12:53 Sodium 137 Potassium 3.9 Chloride 105 Carbon Dioxide 22 BUN 14 Creatinine 1.00 Glucose 121 H Calcium 8.6 Cardiac Enzymes 06/07/25 Range/Units 12:53 Troponin I 0.040 H* (0.000-0.034) ng/mL Liver Function 06/07/25 Range/Units 12:53 Total Bilirubin 0.4 (0.2-1.3) mg/dL AST 28 (17-59) U/L ALT 27 (6-50) U/L Alkaline Phosphatase 54 (38-126) U/L Albumin 4.1 (3.5-5.1) g/dL Assessment and Plan Assessment and plan (1) Elevated brain natriuretic peptide (BNP) level: Code(s): R79.89 - Other specified abnormal findings of blood chemistry Status: Acute Assessment and Plan: With pulmonary edema seen on imaging, BNP 2890 Cardiology consulted Echo with bubble study pending (2) Pulmonary edema: Code(s): J81.1 - Chronic pulmonary edema Status: Acute Assessment and Plan: See above 20 mg IV Lasix x1 Patient seen after Lasix given he states that his breathing is back to normal is no longer having chest pressure (3) Elevated troponin: Code(s): R79.89 - Other specified abnormal findings of blood chemistry Status: Acute Assessment and Plan: Cardiology consulted Troponin/ EKGs p.r.n. Echo pending Pain management (4) Heart valve replaced: Code(s): Z95.2 - Presence of prosthetic heart valve Status: Acute Assessment and Plan: Continue warfarin PTT and INR in the a.m. (5) Hypertension: Code(s): I10 - Essential (primary) hypertension Status: Acute Assessment and Plan: Continue lisinopril Quality VTE Prophylaxis VTE prophylaxis: mechanical ordered and pharmacologic ordered Hospitalist MIPS Advance Care Plan I have confirmed that the patient's Advanced Care Plan is present, code status is documented, or surrogate decision maker is listed in patient medical record.: Yes Medication Reconciliation I have utilized all available resources to obtain, update and review the patients current medications (includes all prescriptions, OTC, herbals, cannabis, and nutritional supplements).: Yes
[2025-06-07 14:53] LABS: NT Pro B Type Natriuretic Pept 2890 pg/mL (19.9-100)
--- NOTE | 2025-06-07 15:59 | ECG_ITS ---
Test Date: 2025-06-07 16:30:24 Measurements Intervals [place] Rate: 84 P: 41 TN: 127 QRS: 37 QRSD: 150 T: 2 QT: 377 QTc: 447 Interpretive Statements SINUS RHYTHM POSSIBLE LEFT ATRIAL ENLARGEMENT [-0.1mV P WAVE IN V1/V2] RIGHT BUNDLE BRANCH BLOCK [120+ ms QRS DURATION, UPRIGHT V1, 40+ ms S IN I/aVL/V4/V5/V6] Compared to ECG 06/07/2025 13:51:27 No significant changes Electronically Signed On 06-07-2025 16:59:10 CDT by Bernarda Benoit M.D.
--- NOTE | 2025-06-07 16:07 | PC.NURSE ---
3 hour ekg has not been obtained due to echo in pt room.
[2025-06-07 16:37] LABS: Troponin I 0.059 ng/mL (0.000-0.034)
[2025-06-07] MEDS: FUROSEMIDE INJ 40 MG/4 ML VIAL 20 MG IV PUSH (18:37)
--- NOTE | 2025-06-07 19:42 | ADMGEN ---
This patient, Siva Chappell, was admitted to IMU Room 209-01. Patient/family oriented to hospital policies and general routines including ID bracelet, bed and alarms, visiting hours, pain management, procedures, bathroom and other care routines, personal items, smoking policy, room service/diet, and visiting hours. Information on how to activate the Rapid Response Team has been discussed. Patient/Family are encouraged to report perceived risks to care and to ask questions if they do not understand what they are told or what they should do.
[2025-06-07] MEDS: ACETAMINOPHEN 325 MG TABLET 650 MG PO (23:14)
[2025-06-08] VITALS (11 sets, daily range): BP systolic 106–118; BP diastolic 63–69; PULSE 77–112; RESP 16–18; TEMP 36.5–36.6; O2SAT 95–99
[2025-06-08 04:20] LABS: Hematocrit 47.2 % (42.0-52.0); Hemoglobin 15.7 g/dL (14.0-18.0); Immature Granulocyte Percent A 0.4 % (0-0.5); Lymphocytes Absolute Auto 2.62 K/mm3 (0.9-3.2); Mean Corpuscular HGB Conc 33.3 g/dl (32-36); Mean Corpuscular Hemoglobin 29.6 pg (26-34); Mean Corpuscular Volume 89.1 fl (80-100); Nucleated Red Blood Cells Absolute Auto 0.000 K/mm3 (0.0-0.012); Nucleated Red Blood Cells Perc 0.0 % (0.0-0.2); Platelet Count Result 210 k/mm3 (150-375); Red Blood Count 5.30 M/mm3 (4.6-6.20); White Blood Count 8.5 K/mm3 (4.5-10.0)
[2025-06-08 04:29] LABS: Anion Gap 11 mmol/L (4-12); Blood Urea Nitrogen 17 mg/dL (9-20); Calcium 8.4 mg/dL (8.4-10.2); Carbon Dioxide 24 mmol/L (22-30); Chloride 100 mmol/L (98-107); Estimated CRCL calculation 68 ml/min; Estimated Glomerular Filt Rate > 60; Glucose 103 mg/dL (65-110); Potassium 3.7 mmol/L (3.4-5.0); Sodium 135 mmol/L (137-145)
[2025-06-08 04:30] LABS: INR 1.6; Prothrombin Time 18.7 Seconds (11.1-14.7)
[2025-06-08 04:31] LABS: Partial Thromboplastin Time 34.8 Seconds (22.3-36.8)
--- NOTE | 2025-06-08 11:06 | PM.CNCAR ---
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 He enters the hospital with shortness of breath after having a viral syndrome. In addition to this his INR is subtherapeutic and he has had some interruptions in his anticoagulation as detailed above. He appears to be comfortable at this time. His warfarin should be resumed at his previously affected toe affective dosage. I will speak to his nursing order 50 mg for today. I believe we should be performing a transesophageal echo to examine his mechanical prosthesis. The unexpectedly high gradient in my opinion requires further investigation. Ideally the patient should stay in the hospital and have this done as an inpatient. He expresses concerns about his family/ employment and the difficulties that ongoing hospitalization would present. I explained to the patient that if he does have a valve thrombosis the most feared outcome of course would be an embolic CVA. Ideally he would remain in the hospital, be placed on IV heparin until his INR is in therapeutic range and get an esophageal echo done as an inpatient. If he insists on being discharged I would recommend resuming his previously effective dose of warfarin and I would arrange for esophageal ECHO as an outpatient. He is speaking to his and will make a decision regarding this shortly. Brent Melendez MD [facility] History of Present Illness History of Present Illness Consult date/time: 06/08/25 11:06 Reason For Visit: sob Narrative: This is a 40-year-old man who is being seen at the request of hospitalist because of dyspnea and concerns regarding his aortic valve prosthesis. The patient is known to our practice and follows in the office with a mechanical aortic valve. At a very young age about 15 years ago he underwent aortic valve replacement because of aortic valve regurgitation. He has a 27 mm [employer] prosthesis which was done in 2009. He has done well since then. He is followed regularly in the office she takes Coumadin 10 mg daily with 15 mg on Mondays. He has been ill with what he thought was a viral syndrome for about 1-2 weeks. He says a viral illness has been going through his family his and children have had myalgias and a cough. There was no significant fever going on. He was also out of town helping a family member and for a few days he did not take his Coumadin when he was traveling. He also states there was a hiatus in his Coumadin treatment about 3 weeks ago when he had a colonoscopy he was instructed not to take his anticoagulation for 3 days before the procedure. In any event he says that for the last 1-2 weeks he has been having these viral syndromes and he was also having some shortness of breath eventually came to the emergency room yesterday for evaluation. It was noted on laboratory dated that his INR is 1.7 with a protime time of 19 seconds. He was admitted to the hospital for further evaluation. An echocardiogram was done which demonstrates vigorous left ventricular systolic function the Doppler appears to show evidence of a high pressure gradient across his aortic valve prosthesis which have accurate would suggest an effective valve area of 0.8 cm2. There is no aortic regurgitation. Upon coming in the room to see him he says he feels well at this time and does not have any complaints. For some reason the dosage of warfarin last night was held. Spent a good deal of time discussing the echocardiographic concerns with the patient regarding his mechanical prosthesis. It is possible that since his device is 15 years old there could be functional stenosis because of pannus development. It is also possible that he would have an element of valve thrombosis since he is subtherapeutic his INR. Review of Systems Constitutional: Constitutional: Reports no additional constitutional complaints Eyes: Eyes: Reports no additional eye complaints ENT: Reports system reviewed and no additional complaints, except as documented Cardiovascular: Cardiovascular: Reports no additional cardiovascular complaints Respiratory: Respiratory: Reports dyspnea on exertion Gastrointestinal: Gastrointestinal: Reports no additional gastrointestinal complaints Musculoskeletal: Musculoskeletal: Reports as per HPI and Reports myalgias Integumentary/Breasts: Skin/Breast: Reports system reviewed and no additional complaints, except as docu Neurologic: Reports system reviewed and no additional complaints, except as documented Endocrine: Endocrine: Reports no additional endocrine complaints Hematologic/Lymphatic: Hematologic/Lymphatic: Reports no additional hematologic/lymphatic complaints Allergic/Immunologic: Allergic/Immunologic: Reports no additional allergic/immunologic complaints [facility] Social History Social History Smoking status: Never smoker Alcohol intake: never Substance use: never Substance use type: does not use Lack of Transportation: No Lack of Food: Never True Current Housing: I Have Housing Concerned About Future Housing: No Difficulty Paying Gas/Electric Bills: No Difficulty Paying for Meds: No Currently Unemployed: No Education: High School Diploma/GED Difficulty w/ Childcare or Family Care: No Spiritual care concerns: No Meds Home Medications and Allergies Home Medications ?Medication ?Instructions ?Recorded ?Confirmed ?Type adalimumab 40 mg/0.4 mL 40 mg subcut [id number] 06/07/25 06/07/25 History subcutaneous pen kit (Humira(CF) Pen) carvedilol 3.125 mg tablet 3.125 mg PO Q12H 06/07/25 06/07/25 History ergocalciferol (vitamin D2) 1,250 1,250 mcg PO WEEKLY 06/07/25 06/07/25 History mcg (50,000 unit) capsule lisinopril 20 mg tablet 20 mg PO DAILY 06/07/25 06/07/25 History sildenafil 100 mg tablet 100 mg PO DAILY PRN erectile 06/07/25 06/07/25 History dysfunction warfarin 10 mg tablet 10 mg PO WEEKLY 06/07/25 06/07/25 History Allergies Allergy/AdvReac Type Severity Reaction Status Date / Time No Known Allergies Allergy Mild Verified 06/07/25 12:21 Vital Signs Vital Signs - 24 hr 06/07/25 12:17 06/07/25 12:40 06/07/25 12:40 Temperature 37.1 C Pulse Rate 92 100 Respiratory Rate 22 H 20 Blood Pressure 110/75 Pulse Oximetry 98 100 100 Oxygen Delivery Room Air Room Air 06/07/25 15:04 06/07/25 16:06 06/07/25 18:40 Temperature Pulse Rate 93 85 91 Respiratory Rate 17 18 20 Blood Pressure 105/72 111/68 138/99 H Pulse Oximetry 100 97 100 Oxygen Delivery 06/07/25 19:23 06/07/25 20:00 06/07/25 20:00 Temperature 36.6 C 36.8 C Pulse Rate 28 L 103 H 102 H Respiratory Rate 17 17 Blood Pressure 124/80 127/80 Pulse Oximetry 100 95 Oxygen Delivery 06/07/25 21:22 06/07/25 23:31 06/07/25 23:52 Temperature 36.7 C Pulse Rate 100 93 100 Respiratory Rate 17 17 Blood Pressure 100/63 Pulse Oximetry 98 98 Oxygen Delivery Room Air 06/07/25 23:52 06/08/25 02:00 06/08/25 03:51 Temperature Pulse Rate 100 81 97 Respiratory Rate 17 Blood Pressure Pulse Oximetry 98 Oxygen Delivery Room Air 06/08/25 03:51 06/08/25 04:00 06/08/25 06:00 Temperature 36.6 C Pulse Rate 97 77 82 Respiratory Rate 17 Blood Pressure 116/69 Pulse Oximetry 99 Oxygen Delivery 06/08/25 07:12 06/08/25 08:00 06/08/25 09:59 Temperature 36.5 C Pulse Rate 90 112 H 96 Respiratory Rate 16 Blood Pressure 118/66 Pulse Oximetry 97 Oxygen Delivery 06/08/25 10:00 06/08/25 10:25 Temperature Pulse Rate 84 Respiratory Rate Blood Pressure Pulse Oximetry 95 Oxygen Delivery Room Air Exam Const: General: comfortable and no acute distress Other: Pleasant healthy-appearing young man no apparent distress HENMT: Mouth: Yes moist mucous membranes Eyes: Sclera: sclerae normal Neck: Neck: supple and no JVD Resp: Effort & Inspection: normal respiratory effort Auscultation: clear to auscultation bilaterally Cardio: Rate: regular rate Rhythm: regular rhythm Other: Grade 2/6 crescendo decrescendo murmur is audible at the left sternal border. No diastolic murmur. GI: GI Palp: Yes Soft to palpation Auscultation: normal bowel sounds Skin: General skin exam: normal color Neuro: Other: Alert and oriented x3 Extrem: General: normal to inspection Results Labs and Meds 06/08/25 03:41 06/08/25 03:41 Lab results: Cardiac Enzymes 06/07/25 06/07/25 Range/Units 12:53 16:05 AST 28 (17-59) U/L Troponin I 0.040 H* 0.059 H* D (0.000-0.034) ng/mL Coagulation 06/07/25 06/08/25 Range/Units 12:53 03:41 PT 19.3 H 18.7 H (11.1-14.7) Seconds APTT 31.8 34.8 (22.3-36.8) Seconds CBC 06/07/25 06/08/25 Range/Units 12:53 03:41 WBC 8.8 8.5 (4.5-10.0) K/mm3 RBC 5.08 5.30 (4.6-6.20) M/mm3 Hgb 14.9 15.7 (14.0-18.0) g/dL Hct 45.2 47.2 (42.0-52.0) % Plt Count 204 210 (150-375) k/mm3 Lymph # (Auto) 1.73 2.62 (0.9-3.2) K/mm3 [place] # (Auto) 0.9 H 1.2 H (0.1-0.6) K/mm3 Eos # (Auto) 0.6 H 0.7 H (0-0.3) K/mm3 Baso # (Auto) 0.1 0.1 (0.0-0.1) K/mm3 Comprehensive Metabolic Panel 06/07/25 06/08/25 Range/Units 12:53 03:41 Sodium 137 135 L (137-145) mmol/L Potassium 3.9 3.7 (3.4-5.0) mmol/L Chloride 105 100 (98-107) mmol/L Carbon Dioxide 22 24 (22-30) mmol/L BUN 14 17 (9-20) mg/dL Creatinine 1.00 1.09 (0.7-1.3) mg/dL Glucose 121 H 103 (65-110) mg/dL Calcium 8.6 8.4 (8.4-10.2) mg/dL AST 28 (17-59) U/L ALT 27 (6-50) U/L Alkaline Phosphatase 54 (38-126) U/L Total Protein 7.4 (6.3-8.2) g/dL Albumin 4.1 (3.5-5.1) g/dL Intake and Output 06/07/25 06/08/25 06/08/25 23:59 07:59 15:59 Intake Total 300 240 Output Total 600 Balance -600 300 240 Intake: Oral 300 240 Output: Urine 600 Patient Weight 06/08/25 23:59 Weight 62.2 kg
[2025-06-08] MEDS: WARFARIN (*PBKC) 7.5 MG TABLET 15 MG PO (11:29)
--- NOTE | 2025-06-08 14:08 | P.DS_ITS ---
DS: Admitting Diagnosis Discharge Date 06/08/2025 Admitting Diagnosis Shortness of breath DS: Discharge Diagnosis Discharge Diagnosis (1) Hypertension: Code(s): I10 - Essential (primary) hypertension Status: Acute (2) Heart valve replaced: Code(s): Z95.2 - Presence of prosthetic heart valve Status: Acute DS: Summary Hospital Course Hospital Course: 32-year-old male followed by Dr. Chase of [facility] [place] with history of remote aortic valve mechanical prosthesis due to aortic regurgitation presents with shortness of breath. His INR was subtherapeutic as he was traveling and missed a dose. Patient wants to leave today. He is in stable condition however it is been suggested by Cardiology to have a LISA performed. Ideally have heparin GTT until his INR is therapeutic as well. We discussed the risks versus benefits and patient expresses understanding and he wants to be discharged today. He will resume his usual dose of warfarin 10 mg daily and 15 mg on Mondays. He will follow-up with the cardiology office. All of his questions and concerns were answered to satisfaction. The patient was full code during admission. Status at Discharge Overall status at discharge: patient is back to baseline Time Spent with Patient Time attestation: Total time spent providing and/or coordinating discharge services: Time spent: Greater than 30 minutes Exam Const: General: comfortable HENMT: Mouth: Yes moist mucous membranes Eyes: Pupils: Equal, round and reactive pupils present Neck: Neck: supple Resp: Effort & Inspection: normal respiratory effort Auscultation: clear to auscultation bilaterally Cardio: Rate: regular rate Rhythm: regular rhythm Heart sounds: Murmur heart sound present GI: Inspection: non-distended GI Palp: Yes Soft to palpation Neuro: Motor exam (neuro): 5/5 motor strength present throughout Extrem: General: no edema DS: Data Data Completed and Pending Labs on day of discharge: Labs from last 24 hours 06/08/25 06/07/25 06/07/25 03:41 16:05 12:53 WBC 8.5 RBC 5.30 Hgb 15.7 Hct 47.2 MCV 89.1 MCH 29.6 MCHC 33.3 RDW 13.6 Plt Count 210 MPV 10.8 H Immature Gran % (Auto) 0.4 Neut % (Auto) 44.7 L Lymph % (Auto) 30.8 [place] % (Auto) 14.6 H Eos % (Auto) 8.6 H Baso % (Auto) 0.9 Lymph # (Auto) 2.62 [place] # (Auto) 1.2 H Eos # (Auto) 0.7 H Baso # (Auto) 0.1 Abs Immat Gran (auto) 0.03 Absolute Neuts (auto) 3.8 Absolute Nucleated RBC 0.000 Nucleated RBC % 0.0 PT 18.7 H INR 1.6 APTT 34.8 Sodium 135 L Potassium 3.7 Chloride 100 Carbon Dioxide 24 Anion Gap 11 BUN 17 Creatinine 1.09 Estim Creat Clear Calc 68 Estimated GFR > 60 Glucose 103 Calcium 8.4 Troponin I 0.059 H* D NT-Pro-B Natriuret Pep 2890 H Discharge Plan Discharge Attending physician on discharge: Aletha Jama Consulting providers: Crista Garcia Discharging Clinician: Aletha Jama Patient Disposition: Home Activity: january shower Diet: as tolerated Patient Instructions: Antibiotic Form Patient Language: Indonesian Stand Alone Forms: General Discharge Information Follow-up/Referrals: BrookeRaffy M.D. [Primary Care Provider] Brent Melendez MD [Physician, Cardiology] Discharge Medications: Continued Humira(CF) Pen 40 mg/0.4 mL pen injector kit 40 mg SUBCUT [id number] carvedilol 3.125 mg tablet 3.125 mg PO Q12H ergocalciferol (vitamin D2) 1,250 mcg (50,000 unit) capsule 1,250 mcg PO WEEKLY lisinopril 20 mg tablet 20 mg PO DAILY sildenafil 100 mg tablet 100 mg PO DAILY PRN (Reason: erectile dysfunction) warfarin 10 mg tablet 10 mg PO WEEKLY Patient Comments: TAKE 15MG ON FRIDAY AND 10MG ALL OTHER DAYS Date of admission: 06/07/25 14:45 Primary Care Provider: Raffy Alegria Admitting Provider: Kelly Snow Attending physician on admission: Kelly Snow Condition: Improved Hospitalist MIPS Heart Failure (Exclusion) Patient has history of Heart Transplant or Left Ventricular Assistive Device?: No IF YES, STOP HERE Heart Failure (Qualifier) Patient has current or prior documentation of LVEF less than or equal to 40%, or mod/servere depressed LVSF?: No IF NO, STOP HERE
--- NOTE | 2025-06-08 15:22 | PC.NURSE ---
On 06/08/25, the student, Brenda, provided care and completed [facility] documentation on this patient. I have reviewed the student's documentation and agree with the findings.
== END 2025-06-08 14:21 | disposition home or self-care (01) ==
LOC: ANHED 12:38 → ANHIMU 18:07
PROVIDERS: Nurse Practitioner Gerontology; Admitting Provider Internal Medicine; Emergency Provider Emergency Medicine; PCP Internal Medicine Infectious Disease; Visit Provider General Practice
DX: R07.89 Other chest pain (principal); R79.89 Other specified abnormal findings of blood chemistry; I10 Essential (primary) hypertension; I45.10 Unspecified right bundle-branch block; Z95.2 Presence of prosthetic heart valve; J81.1 Chronic pulmonary edema; Z79.01 Long term (current) use of anticoagulants; Z20.822 Contact with and (suspected) exposure to COVID-19
CPT/HCPCS: 36415; 71045; 71275; 80048; 80053; 83880; 84484; 85025; 85610; 85730; 87637; 93005; 93306; 96374; 96375; 99285; A9270; G0378; J1171; J1938; Q9967

== ENCOUNTER 2025-06-11 22:37 | Emergency (ER) | payer OTHER, SELFPAY ==
--- NOTE | ~2025-06-11 | XR_ITS ---
Examination: XR chest 1V portable Clinical History: chest pain Comparison: 06/07/2025 Technique: Portable AP Findings: Heart size normal. Patchy airspace disease right lower lobe. No acute bony abnormality. IMPRESSION: 1. Patchy airspace disease right lower lobe. Reviewed, dictated and finalized at location R.
--- NOTE | 2025-06-11 22:39 | ECG_ITS ---
Test Date: 2025-06-11 22:45:31 Measurements Intervals [place] Rate: 121 P: 40 [place]: 107 QRS: 86 QRSD: 146 T: 24 QT: 340 QTc: 483 Interpretive Statements SINUS TACHYCARDIA RIGHT BUNDLE BRANCH BLOCK BORDERLINE ST-T WAVE ABNORMALITY IN ANTEROLATERAL LEADS- CONSIDER ISCHEMIA BASELINE ARTIFACT- I, II, III, AVR, AVL, AVF ABNORMAL ECG Compared to ECG 06/07/2025 16:30:24 HEART RATE HAS INCREASED POSSIBLE ISCHEMIA NOW PRESENT Electronically Signed On 06-12-2025 08:13:17 CDT by Davi Georges D.O.
[2025-06-11 22:52] VITALS: BP 153/105; PULSE 133; RESP 43; O2SAT 97
[2025-06-11 22:55] VITALS: BP 142/95; PULSE 125; RESP 25; RESP 27; TEMP 37.5; O2SAT 94; O2SAT 96
--- NOTE | 2025-06-11 22:55 | ECG_ITS ---
Test Date: 2025-06-11 22:57:07 Measurements Intervals [place] Rate: 121 P: 41 VT: 121 QRS: 87 QRSD: 142 T: 30 QT: 340 QTc: 483 Interpretive Statements SINUS TACHYCARDIA RIGHT BUNDLE BRANCH BLOCK ST-T WAVE ABNORMALITY IN ANTEROLATERAL LEADS- CONSIDER ISCHEMIA ABNORMAL ECG Compared to ECG 06/11/2025 22:45:31 Electronically Signed On 06-12-2025 08:11:37 CDT by Davi Georges D.O.
[2025-06-11 23:00] VITALS: BP 140/91; PULSE 122; RESP 35; O2SAT 92
[2025-06-11] MEDS: ASPIRIN 81 MG CHEWABLE TABLET 324 MG PO (23:00)
--- NOTE | 2025-06-11 23:00 | ED.CHESTPAIN ---
HPI - Chest Pain General Chief Complaint: Chest Pain Stated Complaint: chest pain, SOB Time Seen by Provider: 06/11/25 22:48 Source: patient Mode of arrival: ambulatory Limitations: no limitations History of Present Illness HPI narrative: Patient presents with chest pain starting yesterday, worsening in AM. Pain is substernal and back. 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 On coumadin. Recently admitted here. No shorteness of breath at rest but experiencing intermittent dyspnea on exertion. No nausea/vomiting, fevers/chills. Has been coughing but no hemoptysis. Other family members sick which is why he origincally presented to the ED recently. History of heart failure. He is on carvedilol and warfarin. Doesn't know when last cardiac cath was. Cardiac risk factors HTN: Yes HLD: No DM: No Obese: No Smoker: No (used to dip but quit) Personal history GA/TIA/CVA: No - but NSTEMI Fam Hx GA in first degree relative <65yo: No Related Data Home Medications ?Medication ?Instructions ?Recorded ?Confirmed ?Last Taken ?Type adalimumab 40 mg/0.4 mL 40 mg subcut [id number] 06/07/25 06/07/25 05/29/25 History subcutaneous pen kit (Humira(CF) Pen) carvedilol 3.125 mg tablet 3.125 mg PO Q12H 06/07/25 06/07/25 06/07/25 History ergocalciferol (vitamin D2) 1,250 1,250 mcg PO WEEKLY 06/07/25 06/07/25 06/06/25 History mcg (50,000 unit) capsule lisinopril 20 mg tablet 20 mg PO DAILY 06/07/25 06/07/25 06/07/25 History sildenafil 100 mg tablet 100 mg PO DAILY PRN erectile 06/07/25 06/07/25 Unknown History dysfunction warfarin 10 mg tablet 10 mg PO WEEKLY 06/07/25 06/07/25 06/06/25 History Allergies Allergy/AdvReac Type Severity Reaction Status Date / Time No Known Allergies Allergy Mild Verified 06/07/25 12:21 [facility] Past Medical History Medical History (Updated 06/13/25 @ 20:38 by Ary Greer MD) History of non-ST elevation myocardial infarction (NSTEMI) May 2025 Hypertension Anticoagulated on Coumadin Heart failure Surgical History Surgical History H/O aortic valve replacement Cal miller (2007, 2009) Social History Social History (Updated 06/13/25 @ 20:38 by Ary Greer MD) Smoking status: Never smoker Additional smoking assessment comments: used to dip, quit Alcohol intake: never Substance use: never Substance use type: does not use Lack of Transportation: No Lack of Food: Never True Current Housing: I Have Housing Concerned About Future Housing: No Difficulty Paying Gas/Electric Bills: No Difficulty Paying for Meds: No Currently Unemployed: No Education: High School Diploma/GED Difficulty w/ Childcare or Family Care: No Spiritual care concerns: No Exam Narrative: GENERAL: well-nourished, and in no acute distress. HEAD: Normocephalic, atraumatic. EYES: Non injected, non icteric ENT: Nares clear, no rhinorrhea or epistaxis. Gross auditory acuity intact. NECK: Supple. No meningismus. CHEST: Tachypneic, in the high 20s/low 30s at time of assessment initially HEART: Tachycardic rate and rhythm. . ABDOMEN: Soft, nondistended. No rigidity or guarding. Not peritoneal EXTREMITIES: Normal range of motion. SKIN: Warm, dry, no rash. NEURO: No focal deficits. Alert and oriented. Answering questions. Following commands. Normal speech without aphasia or dysarthria. PSYCH: Normal mood and affect. Course Vital Signs Vital signs: Vital Signs Pulse Rate 133 H 06/11/25 22:52 Respiratory Rate 43 H 06/11/25 22:52 Blood Pressure 153/105 H 06/11/25 22:52 Pulse Oximetry 97 06/11/25 22:52 Temperature 97.7 F 06/12/25 01:00 Pulse Rate 103 H 06/12/25 03:45 Respiratory Rate 25 H 06/12/25 03:45 Blood Pressure 117/83 06/12/25 03:45 Pulse Oximetry 91 06/12/25 03:45 Oxygen Delivery Room Air 06/12/25 01:00 MDM - Chest Pain MDM Narrative Medical decision making narrative: Patient presents with chest pain, substernal and back, as well as intermittent dyspnea on exertion. In the ED he is afebrile with vital signs notable for hypertension, tachycardia, and marked tachypnea. Based on the marked ST depressions throughout, I did discuss with on-call religious activities director Dr. Montemayor who has concerns based on his history that this is related to his aortic valve which will likely require repair/replacement, TAVR consideration. Concern for RV dysfunction / possible biventricular failure. Recommends transferring to higher acuity facility, likely [place] versus [facility]. Recommended obtaining LDH and haptoglobin for labs. HEART SCORE History 2 highly suspicious 1 moderately suspicious 0 slightly suspicious History score [address] depression/elevation not due to LBBB, LVH, or digoxin [address] depression but LBBB, LVH, nonspecific repolarization changes 0 normal ECG score 2 Age 2 >/= 65 1 45-64 0 <45 Age score 1 Risk factors (HTN, hypercholesterolemia, DM, obesity with BMI >30, current smoker or cessation </=3mo), positive fam hx with parent or sibling with CVD before age 65, atherosclerotic disease (prior GA, PCI/CABG, CVA/TIA, or peripheral arterial disease) 2 >/= 3 risk factors or history of atherosclerotic dz 1 - 1-2 risk factors 0 no known risk factors Risk factor score 1 Initial Troponin 2 >3 times normal limit 1 1-3 times normal limit 0 less than or equal to normal limit Troponin score 2 (>30 x the upper limit of normal) Total HEART Score 6 He has a leukocytosis. Mild hyperglycemia without anion gap or acidosis. Sodium mildly corrects (to 135) in the setting of blood glucose. Spoke with Dr Carlos Hector at [facility] cardiothoracic surgeon at 00:35. Recommend admission to hospitalist and cardiac catheterization with cardiology and will try to arrange LISA while there. D dimer mildly elevated. YEARS Algorithm : No Clinical signs of DVT: No Hemoptysis: No PE is most likely diagnosis: No D-dimer >1000ng/mL: No Result: PE Excluded (and patient already on warfarin so even less likely). Will defer obtaining CTA PE study. INR 2.0. Chest x-ray is read as concerning for multilobar pneumonia. Given this, will initiate one time dose of broad-spectrum antibiotics in the form of vancomycin, ceftriaxone, and add azithromycin to cover atypicals. BNP is greater than 6000. It had been greater than 2000 previously. Rather than giving IV fluids at this time, given concern for heart failure worsening, will given IV Lasix at this time. Patient updated on status. Heparin ordered for NSTEMI. No recent cardiac catheterization. Dr Swann hospitalist at [facility] at 01:00. Accepted, will need a cardiac telemetry bed, [facility] inpatient. Diagnosis NSTEMI with possible CHF exacerbatioin and acute pulmonary edema versus pneumonia. LDH mildly elevated. UDS negative. Repeat troponin remains elevated, slightly increasing, at 1.28. His blood pressure is normalized. Tachycardia improving as is tachypnea although both still present. At approximately 2:30 there has still not been a bed assigned. However one is assigned around 3:50am, room #1356. Transported by ALS. He has been hemodynamically stable. == Critical Care: 1 or more vital organ systems impaired with a high probability of imminent or life-threatening deterioration in the patient's condition requiring frequent personal assessment and manipulation of the patient's condition. This included time spent evaluating the patient, speaking with EMS pre-hospital personnel and family, reviewing/interpreting laboratory/imaging studies, discussing the case with consultants or admitting teams, retrieving data and reviewing charts, monitoring for decompensation, documenting the visit, and performing bundled procedures exclusive of separately billed procedures. Differential Diagnosis Differential diagnosis: Likely stable angina, unstable angina pectoris, atypical chest pain, st elevation myocardial infarction, costochondritis, chest pain, biliary colic and other (heart failure; cardiogenic shock; less likely PE; aortic dissection considered but repeat occurence/timing points against this; valve failure and/or other valvulopathy; PNA; acute viral syndrome) Medical Records Data Attestation: I reviewed the patient's medical records. Medical records narrative: ECHO from 06/07/25 Summary 1. Left ventricular systolic function is normal, estimated at 55-60. 2. The prosthetic aortic valve has calcification. 3. 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 DVI 0.125. 4. There is mild regurgitation of the prosthetic aortic valve. 5. The aortic root size at the sinus of Valsalva is mildly dilated. [employer] Dr Melendez's note during recent admission: I believe we should be performing a transesophageal echo to examine his mechanical prosthesis. The unexpectedly high gradient in my opinion requires further investigation. Ideally the patient should stay in the hospital and have this done as an inpatient.......Follow-up discussion with the patient regarding evaluation of his aortic valve prosthesis. It is been brought to my attention that we do not have a physician scheduled at this hospital this week who is able to perform his transesophageal echocardiogram. He is clinically stable and would like to be discharged. I believe he is stable enough for discharge and we can arrange for transesophageal echo as an outpatient in the near future. He should be placed on his previously effective dose of warfarin which is 10 mg daily and 15 mg on Mondays. My office will schedule his esophageal ECHO in reach out to the patient regarding the details. Lab Data Attestation: I reviewed the patient's lab results. Lab results narrative: Trace ketonuria otherwise urine without signs of infection. 06/11/25 23:02 06/11/25 23:02 Labs: Lab Results 06/11/25 06/11/25 06/11/25 Range/Units 23:02 23:02 23:37 WBC 15.7 H (4.5-10.0) K/mm3 RBC 5.59 (4.6-6.20) M/mm3 Hgb 16.4 (14.0-18.0) g/dL Hct 49.4 (42.0-52.0) % MCV 88.4 (80-100) fl MCH 29.3 (26-34) pg MCHC 33.2 (32-36) g/dl RDW 13.7 (11.5-14.5) % Plt Count 214 (150-375) k/mm3 MPV 10.7 H (7.4-10.4) fl Immature Gran % (Auto) 0.4 (0-0.5) % Neut % (Auto) 80.8 H (45.5-73.1) % Lymph % (Auto) 10.2 L (18.3-44.2) % [place] % (Auto) 5.8 (2.6-8.5) % Eos % (Auto) 2.4 (0-4.4) % Baso % (Auto) 0.4 (0.2-1.2) % Lymph # (Auto) 1.59 (0.9-3.2) K/mm3 [place] # (Auto) 0.9 H (0.1-0.6) K/mm3 Eos # (Auto) 0.4 H (0-0.3) K/mm3 Baso # (Auto) 0.1 (0.0-0.1) K/mm3 Abs Immat Gran (auto) 0.07 H (0.00-0.031) K/mm3 Absolute Neuts (auto) 12.6 H (1.3-6.7) K/mm3 Absolute Nucleated RBC 0.000 (0.0-0.012) K/mm3 Nucleated RBC % 0.0 (0.0-0.2) % Haptoglobin (17-317) mg/dL PT 21.8 H (11.1-14.7) Seconds INR 2.0 APTT 34.8 (22.3-36.8) Seconds D-Dimer 0.55 H Cancelled (<0.48) ug/mL Sodium 134 L (137-145) mmol/L Potassium 3.7 (3.4-5.0) mmol/L Chloride 101 (98-107) mmol/L Carbon Dioxide 24 (22-30) mmol/L Anion Gap 9 (4-12) mmol/L BUN 14 (9-20) mg/dL Creatinine 1.14 (0.7-1.3) mg/dL Estim Creat Clear Calc 65 ml/min Estimated GFR > 60 (59 - ) Glucose 157 H (65-110) mg/dL Lactic Acid (0.7-2.0) mmol/L Calcium 8.6 (8.4-10.2) mg/dL Total Bilirubin 0.6 (0.2-1.3) mg/dL AST 40 (17-59) U/L ALT 26 (6-50) U/L Alkaline Phosphatase 58 (38-126) U/L Lactate Dehydrogenase 340 H (120-246) U/L Troponin I 1.040 H* (0.000-0.034) ng/mL C-Reactive Protein (<1.0) mg/dL NT-Pro-B Natriuret Pep 6880 H (19.9-100) pg/mL Total Protein 7.7 (6.3-8.2) g/dL Albumin 4.1 (3.5-5.1) g/dL Lipase 157 (23-300) U/L Urine Color Yellow (Yellow) Urine Appearance Clear (Clear) Urine pH 5.5 (5.0-9.0) Ur Specific [place] 1.010 (1.001-1.035) Urine Protein Negative (Negative) mg/dL Urine Glucose (UA) Negative (Negative) mg/dL Urine Ketones Trace H (Negative) mg/dL Ur Blood (Man) Negative (Negative) Urine Nitrate Negative (Negative) Urine Bilirubin Negative (Negative) Urine Urobilinogen 0.2 (<2.0) mg/dL Leukocyte Esterase Rfl Negative (Negative) SAMM/UL Nasal MRSA (PCR) (NOT DETECTE) Urine Opiates Screen Negative (Negative) Urine Methadone Screen Negative (Negative) Ur Barbiturates Screen Negative (Negative) Ur Phencyclidine Scrn Negative (Negative) Ur Amphetamine Screen Negative (Negative) U Benzodiazepines Scrn Negative (Negative) Urine Cocaine Screen Negative (Negative) U Cannabinoids Screen Negative (Negative) Influenza A (RT-PCR) (Negative) Influenza B (RT-PCR) (Negative) RSV (RT-PCR) (Negative) SARS-CoV-2 RNA (RT-PCR) (Negative) 06/11/25 06/12/25 06/12/25 Range/Units 23:39 00:48 01:35 WBC (4.5-10.0) K/mm3 RBC (4.6-6.20) M/mm3 Hgb (14.0-18.0) g/dL Hct (42.0-52.0) % MCV (80-100) fl MCH (26-34) pg MCHC (32-36) g/dl RDW (11.5-14.5) % Plt Count (150-375) k/mm3 MPV (7.4-10.4) fl Immature Gran % (Auto) (0-0.5) % Neut % (Auto) (45.5-73.1) % Lymph % (Auto) (18.3-44.2) % [place] % (Auto) (2.6-8.5) % Eos % (Auto) (0-4.4) % Baso % (Auto) (0.2-1.2) % Lymph # (Auto) (0.9-3.2) K/mm3 [place] # (Auto) (0.1-0.6) K/mm3 Eos # (Auto) (0-0.3) K/mm3 Baso # (Auto) (0.0-0.1) K/mm3 Abs Immat Gran (auto) (0.00-0.031) K/mm3 Absolute Neuts (auto) (1.3-6.7) K/mm3 Absolute Nucleated RBC (0.0-0.012) K/mm3 Nucleated RBC % (0.0-0.2) % Haptoglobin <10 L (17-317) mg/dL PT (11.1-14.7) Seconds INR APTT (22.3-36.8) Seconds D-Dimer (<0.48) ug/mL Sodium (137-145) mmol/L Potassium (3.4-5.0) mmol/L Chloride (98-107) mmol/L Carbon Dioxide (22-30) mmol/L Anion Gap (4-12) mmol/L BUN (9-20) mg/dL Creatinine (0.7-1.3) mg/dL Estim Creat Clear Calc ml/min Estimated GFR (59 - ) Glucose (65-110) mg/dL Lactic Acid 0.9 (0.7-2.0) mmol/L Calcium (8.4-10.2) mg/dL Total Bilirubin (0.2-1.3) mg/dL AST (17-59) U/L ALT (6-50) U/L Alkaline Phosphatase (38-126) U/L Lactate Dehydrogenase (120-246) U/L Troponin I 1.280 H* D (0.000-0.034) ng/mL C-Reactive Protein 0.8 (<1.0) mg/dL NT-Pro-B Natriuret Pep (19.9-100) pg/mL Total Protein (6.3-8.2) g/dL Albumin (3.5-5.1) g/dL Lipase (23-300) U/L Urine Color (Yellow) Urine Appearance (Clear) Urine pH (5.0-9.0) Ur Specific [place] (1.001-1.035) Urine Protein (Negative) mg/dL Urine Glucose (UA) (Negative) mg/dL Urine Ketones (Negative) mg/dL Ur Blood (Man) (Negative) Urine Nitrate (Negative) Urine Bilirubin (Negative) Urine Urobilinogen (<2.0) mg/dL Leukocyte Esterase Rfl (Negative) SAMM/UL Nasal MRSA (PCR) (NOT DETECTE) Urine Opiates Screen (Negative) Urine Methadone Screen (Negative) Ur Barbiturates Screen (Negative) Ur Phencyclidine Scrn (Negative) Ur Amphetamine Screen (Negative) U Benzodiazepines Scrn (Negative) Urine Cocaine Screen (Negative) U Cannabinoids Screen (Negative) Influenza A (RT-PCR) Negative (Negative) Influenza B (RT-PCR) Negative (Negative) RSV (RT-PCR) Negative (Negative) SARS-CoV-2 RNA (RT-PCR) Negative (Negative) 06/12/25 Range/Units 02:30 WBC (4.5-10.0) K/mm3 RBC (4.6-6.20) M/mm3 Hgb (14.0-18.0) g/dL Hct (42.0-52.0) % MCV (80-100) fl MCH (26-34) pg MCHC (32-36) g/dl RDW (11.5-14.5) % Plt Count (150-375) k/mm3 MPV (7.4-10.4) fl Immature Gran % (Auto) (0-0.5) % Neut % (Auto) (45.5-73.1) % Lymph % (Auto) (18.3-44.2) % [place] % (Auto) (2.6-8.5) % Eos % (Auto) (0-4.4) % Baso % (Auto) (0.2-1.2) % Lymph # (Auto) (0.9-3.2) K/mm3 [place] # (Auto) (0.1-0.6) K/mm3 Eos # (Auto) (0-0.3) K/mm3 Baso # (Auto) (0.0-0.1) K/mm3 Abs Immat Gran (auto) (0.00-0.031) K/mm3 Absolute Neuts (auto) (1.3-6.7) K/mm3 Absolute Nucleated RBC (0.0-0.012) K/mm3 Nucleated RBC % (0.0-0.2) % Haptoglobin (17-317) mg/dL PT (11.1-14.7) Seconds INR APTT (22.3-36.8) Seconds D-Dimer (<0.48) ug/mL Sodium (137-145) mmol/L Potassium (3.4-5.0) mmol/L Chloride (98-107) mmol/L Carbon Dioxide (22-30) mmol/L Anion Gap (4-12) mmol/L BUN (9-20) mg/dL Creatinine (0.7-1.3) mg/dL Estim Creat Clear Calc ml/min Estimated GFR (59 - ) Glucose (65-110) mg/dL Lactic Acid (0.7-2.0) mmol/L Calcium (8.4-10.2) mg/dL Total Bilirubin (0.2-1.3) mg/dL AST (17-59) U/L ALT (6-50) U/L Alkaline Phosphatase (38-126) U/L Lactate Dehydrogenase (120-246) U/L Troponin I (0.000-0.034) ng/mL C-Reactive Protein (<1.0) mg/dL NT-Pro-B Natriuret Pep (19.9-100) pg/mL Total Protein (6.3-8.2) g/dL Albumin (3.5-5.1) g/dL Lipase (23-300) U/L Urine Color (Yellow) Urine Appearance (Clear) Urine pH (5.0-9.0) Ur Specific [place] (1.001-1.035) Urine Protein (Negative) mg/dL Urine Glucose (UA) (Negative) mg/dL Urine Ketones (Negative) mg/dL Ur Blood (Man) (Negative) Urine Nitrate (Negative) Urine Bilirubin (Negative) Urine Urobilinogen (<2.0) mg/dL Leukocyte Esterase Rfl (Negative) SAMM/UL Nasal MRSA (PCR) Not detected (NOT DETECTE) Urine Opiates Screen (Negative) Urine Methadone Screen (Negative) Ur Barbiturates Screen (Negative) Ur Phencyclidine Scrn (Negative) Ur Amphetamine Screen (Negative) U Benzodiazepines Scrn (Negative) Urine Cocaine Screen (Negative) U Cannabinoids Screen (Negative) Influenza A (RT-PCR) (Negative) Influenza B (RT-PCR) (Negative) RSV (RT-PCR) (Negative) SARS-CoV-2 RNA (RT-PCR) (Negative) Imaging Data Attestation: I personally reviewed and interpreted this imaging study as follows: My impression: Cardiomegaly, patchy bilateral infiltrates, suspicious for pulmonary edema, sternotomy wires, mechanical aortic valve present on my independent interpretation Radiologist's impression: CXR 1 view stat rad: Mild consolidation in the right medial lung wilkerson, concerning for multilobar pneumonia. No PTX. Sternotomy wires. Cardiomegaly. Prosthetic aortic valve. ECG Data EKG #1: Attestation: I personally reviewed and interpreted this ECG as follows: ECG completion date: 06/11/25 ECG completion time: 22:45 Prior ECG tracings: available for review (06/07/25: Right bundle-branch block was present and T-wave inversions were noted in V3 and V4. Marked ST depressions were not appreciated) Interpretation: Sinus tachycardia at a rate of 121 beats per minute. MO interval 107. QRS 146. QT/QTC 340/412. Good R-wave progression across the precordial leads. T-wave inversion in 3 but upright in contiguous inferior leads. Patient also had T-wave inversion in V3, possibly due to lead placement. T-wave is inverted verses biphasic in V4. RBBB given QRS greater [id number]; RSR' M-shaped pattern in V1-V3; wide, slurred S wave in lateral leads (I, aVL, V5-6). He has marked ST depressions throughout including in V3 through V6 and slightly in 2 and aVL as well as AVF although not as appreciable in 3. EKG #2: Attestation: I personally reviewed and interpreted this ECG as follows: ECG completion date: 06/11/25 ECG completion time: 22:57 Interpretation: Sinus tachycardia at a rate of 121 beats per minute. MO interval 121. QRS 142. QT/QTC 340/412. Good R-wave progression across the precordial leads. Appears similar to the one obtained just prior Critical Care Time Critical Care Time Critical Care Time: Yes Total Critical Care Time: 45 Discharge Plan Discharge Clinical Impression: Chest pain, Leukocytosis, Hyperglycemia, Hyponatremia, ST segment depression, Non-ST elevation GA (NSTEMI), Pneumonia, Cardiomegaly, H/O prosthetic aortic valve replacement, Heart failure, Elevated LDH Patient Disposition: Acute Care Hospital Condition: Serious Patient Language: Mohawk Prescriptions: No Action Humira(CF) Pen 40 mg/0.4 mL pen injector kit 40 mg SUBCUT [id number] carvedilol 3.125 mg tablet 3.125 mg PO Q12H ergocalciferol (vitamin D2) 1,250 mcg (50,000 unit) capsule 1,250 mcg PO WEEKLY lisinopril 20 mg tablet 20 mg PO DAILY sildenafil 100 mg tablet 100 mg PO DAILY PRN (Reason: erectile dysfunction) warfarin 10 mg tablet 10 mg PO WEEKLY Patient Comments: TAKE 15MG ON FRIDAY AND 10MG ALL OTHER DAYS Follow-up/Referrals: Bjorn,Tia Akbar [Primary Care Provider] Time of Disposition: 01:09
[2025-06-11 23:01] VITALS: PULSE 126; RESP 28; O2SAT 94
[2025-06-11 23:11] LABS: Hematocrit 49.4 % (42.0-52.0); Hemoglobin 16.4 g/dL (14.0-18.0); Immature Granulocyte Percent A 0.4 % (0-0.5); Lymphocytes Absolute Auto 1.59 K/mm3 (0.9-3.2); Mean Corpuscular HGB Conc 33.2 g/dl (32-36); Mean Corpuscular Hemoglobin 29.3 pg (26-34); Mean Corpuscular Volume 88.4 fl (80-100); Nucleated Red Blood Cells Absolute Auto 0.000 K/mm3 (0.0-0.012); Nucleated Red Blood Cells Perc 0.0 % (0.0-0.2); Platelet Count Result 214 k/mm3 (150-375); Red Blood Count 5.59 M/mm3 (4.6-6.20); White Blood Count 15.7 K/mm3 (4.5-10.0)
[2025-06-11 23:15] VITALS: BP 129/102; PULSE 120; RESP 16; O2SAT 93
[2025-06-11 23:16] VITALS: PULSE 117; RESP 25; O2SAT 97
[2025-06-11 23:22] LABS: INR 2.0; Prothrombin Time 21.8 Seconds (11.1-14.7)
[2025-06-11 23:23] LABS: Partial Thromboplastin Time 34.8 Seconds (22.3-36.8)
--- OUTSIDE RECORDS SUMMARY | 2025-06-11 23:26 | XMS_ITS | Encounter Summary ---
Author Organization [facility] Healthcare Address [address] [place] [address] Care Team Providers Care Upper Cutter Machine Name Role Phone Raffy Milan MD Primary Care Provider Encounter Details Date Type Department Care Team ([facility] Contact Info) Description 06/10/2025 Orders Only [facility] Cardiology [address] [address] [address] [place] [address] Brent Melendez MD [address] [facility] [address] [place] [address] Social History Tobacco Use Types Packs/Day Years Used Date Smoking Tobacco: Never Alcohol Use Standard Drinks/Week Comments Yes 0 (1 standard drink = 0.6 oz pur e alcohol) Sex and Gender Information Value Date Recorded Sex Assigned at Not on file 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 Gender Identity Not on file Sexual Orientation Not on file documented as of this encounter Plan of Treatment Not on file documented as of this encounter Procedures Procedure Name Priority Date/Time Associated Diagnosis Comments CARDIOLOGY DOCUMENT SCAN Routine 06/08/2025 3:33 PM CDT documented in this encounter Results * Cardiology Document Scan (06/08/2025 3:33 PM CDT) Anatomical Region Laterality Modality Other us Brent Melendez MD [facility] CARDIAC SERVICES PROC EDURES Final Result documented in this encounter Visit Diagnoses Not on filedocumented in this encounter Care Teams Upper Cutter Machine Relationship Specialty Start Date End Date Raffy Milan MD [address] [address] PCP - General Internal Medicine 07/06/18 documented as of this encounter
--- OUTSIDE RECORDS SUMMARY | 2025-06-11 23:26 | XMS_ITS | Encounter Summary ---
Author Organization [facility] Address 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 China Culp MD [facility] Gastroenterology documented in this encounter Plan of Treatment Not on file documented as of this encounter Visit Diagnoses Not on filedocumented in this encounter
--- OUTSIDE RECORDS SUMMARY | 2025-06-11 23:26 | XMS_ITS | Clinical Summary ---
Author Organization [facility] Address [address] [place] [phone] Phone Care Team Providers Care Critical Care Paramedic Name Role Phone Unavailable Primary Care Provider [...] STL ABSTRACTION Provider, Abstract 05/05/2025 Results Follow-Up [facility] [address] [facility] [address] [place] [address] China Culp MD PATHOLOGY 05/03/2025 External Device Data STL ABSTRACTION Provider, Abstract 04/29/2025 9:49 AM CDT Anesthesia Event [facility] [address] [place] [address] [place] [address] Rachel Lopez MD Rheder, Bianca K, AA-C 04/29/2025 9:40 AM CDT - 04/29/2025 10:20 AM CDT Surgery [facility] [place] [address] [facility] [place] [address] China Culp MD COLONOSCOPY 04/29/2025 9:06 AM CDT - 04/29/2025 11:02 AM CDT Hospital [facility] [place] [address] [place] [address] China Culp MD Ulcerative pancolitis with complication (CMS/HCC) Discharge Disposition: Home or Self Care 04/29/2025 Orders Only [facility] [address] [address] [facility] [address] [place] [address] China Culp MD Ulcerative pancolitis with complication [...] on file Legal Sex Male 12:10 PM [employer] Gender Identity Not on file Sexual Orientation [...] AM CDT Ulcerative pancolitis with complication (CMS/HCC) OR COLONOSCOPY FLX DX W/COLLJ SPEC WHEN PFRMD 04/29/2025 9:40 AM CDT Ulcerative pancolitis with complication (CMS/HCC) Case Notes rs from 07-07-24 to 2-7-25 rs from 2-7-25 to 4--25/rf from Last 3 Months Results * COLONOSCOPY REPORT (04/29/2025 10:14 AM CDT) Narrative Procedure Note China Culp MD - 04/29/2025 10:14 AM CDT [facility] Endoscopy Patient Name: Siva Chappell Procedure Date: [...] of Addenda: [address]; [place] [address] us China Culp MD GI PROCEDURE ORDERABLES F inal Result * PATHOLOGY (04/29/2025 10:06 AM CDT) CASE REPORT Surgical Pathology Report Case: [id number] Authorizing Provider: China Culp MD Collected: 04/29/2025 10:06 AM Ordering Location: [facility] [address] Received: 04/29/2025 11:02 AM Pathologist: iNcole Christine MD Specimens: A) - Colon, bx B) - Colon, rectosigmoid, bx 6:27 PM T [facility] FINAL DIAGNOSIS Large intestine, site undesignated, biopsy: - No significant pathologic findings. Large intestine, rectosigmoid, biopsy: - Chronic active colitis/proctitis, moderate to severe; negative for dysplasia. 6:27 PM T [facility] at 1827 CDT GROSS DESCRIPTION Two containers [...] entirely labeled B1. KA 6:27 PM [facility] MICROSCOPIC DESCRIPTION Received are slides labeled [id number], Siva Chappell. The submitted colon biopsy contains [...] of dysplasia or malignancy. 6:27 PM [facility] OPERATIVE PROCEDURE 1: COLONOSCOPY 5 6:27 PM CDT [facility] CLINICAL INFORMATION Ulcerative Colitis K51.019-Ulcerative pancolitis with complication (CMS/HCC) 5 6:27 PM CDT [facility] COMMENT Special stain, immunohistochemical, and/or in situ hybridization results are interpreted with controls that demonstrate appropriate staining reactions. Note on use of immunohistochemistry reagents and in situ hybridization probes: These tests were developed and their performance characteristics determined by [facility], Department of Laboratory Medicine. It has not [...] part or completely in the following laboratories: [facility], [place] #[id number] [address] [place] [address] [facility], [place] #[id number] [address] [place] [address] [facility], [place] #[id number] [id number] [place] [id number] This report was created with the [employer]Who voice-activated dictation system. Inherent to this system is the possibility of syntax, grammar, punctuation and other errors that could impact the interpretation of the report. If there are interpretative questions about aspects of this report, please contact the performing pathologist. 5 6:27 PM T [facility] Tissue SPECIMEN FROM COLON / Unknown Collection / Unknown 04/29/2025 10:06 AM CDT 04/29/2025 11:02 AM CDT Comment:Ulcerative Colitis Tissue specimen (specimen) (Colon, rectosigmoid) Collection / Unknown 04/29/2025 10:06 AM CDT 04/29/2025 11:02 AM CDT Comment:Ulcerative Colitis China Culp MD PATHOLOGY/CYTOLOGY ORDERA BLES Final Result Performing Organization Address City/State/[facility] Co de Phone Number [facility]# [id number] [address] [place] [id number] from Last 3 Months Insurance Member Subscriber Plan / Payer (Ef fective 2023-Present) Name:Siva Chappell Relation to Subscriber:Self Name:Siva Chappell Payer ID:[id number] (NAIC) Type:HMO Address: [facility] [id number] [employer] Member Subscriber Plan / Payer (Ef fective 2023-Present) Name:Siva Chappell Relation to Subscriber:Self Name:Siva Chappell Payer ID:Not on file Group ID:[id number] Type:RX Commercial Address: [place] Advance Directives For more information, please contact: [phone] * Full Code (Latest Code Status on File) Date Activated Date Inactivated Comments 04/29/2025 9:26 AM 04/29/2025 1:02 PM
--- OUTSIDE RECORDS SUMMARY | 2025-06-11 23:26 | XMS_ITS | Data Portability ---
Author Organization [facility] SERINAElly Address [address] [place] [address] Care Team Providers Care Bariatric Nurse Name Role Phone ADRIENNE FORMAN Rural Health Consultant JULI MELENDEZ Creative Producer [phone] Assessment No assessment recorded. Plan of Treatment Reminders Order Date Submit Date Provider Last Modified By Organization Details Last Modified Time Details Appointments None recorded. Lab lipid panel, serum 2024 025 [facility], [address], [place], [address], 12:42:07 CBC w/ auto diff 2024 025 [facility], [address], [place], [address], 5 12:42:07 BMP, serum or plasma 2024 025 [facility], [address], [place], [address], 5 12:42:07 HbA1c (hemoglobi n A1c), blood 2024 025 [facility], [address], [place], [address], 5 12:42:07 urinalysis , complete 2024 025 [facility], [address], [place], [address], 5 12:42:08 TSH, serum or plasma 2024 025 [facility], [address], [place], [address], 5 12:42:07 vitamin B12 + folate, serum or blood [address] [facility], [address], [place], [address], 5 12:42:07 lipid panel, serum 2022 023 [facility], [address], [place], [address], 4 00:29:24 CBC w/ auto diff 2022 023 [facility], [address], [place], [address], 4 00:29:25 BMP, serum or plasma 2022 023 [facility], [address], [place], [address], 4 00:29:24 TSH, serum or plasma 2022 023 [facility], [address], [place], [address], 4 00:29:26 urinalysis , complete 2022 023 [facility], [address], [place], [address], 4 00:29:25 CMP, serum or plasma 2021 022 [facility], [address], [place], [address], 2 12:32:44 CBC w/ auto diff 2021 022 [facility], [address], [place], [address], 2 12:32:45 lipid panel, serum 2021 022 [facility], [address], [place], [address], 2 12:32:43 urinalysis , complete 2021 022 [facility], [address], [place], [address], 2 12:32:44 CBC w/ auto diff 2019 021 [facility], [facility], [address], [place], [address], 1 03:00:45 urinalysis , complete 2019 021 [facility], [facility], [address], [place], [address], 1 03:03:56 basic metabolic 1998 panel, serum or plasma 2019 021 [facility], [address] [place], [place] [address]armando [address], [address], [place], [address], 1 03:03:57 CBC w/ auto diff 2018 019 [facility], [facility], [address], [place], [address], 0 07:11:13 CMP, serum or plasma 2018 019 [facility], [address] [place], [place] [address]armando Valdze, [address], [place], [address], 0 07:11:13 urinalysis , complete 2018 019 [facility], [address] [facility], [address], [place], [address], 9 12:22:10 lipid panel, serum 2018 019 [facility], [address] [facility], [address], [place], [address], 0 07:11:15 urinalysis , complete 2018 019 [facility], [address] [facility], [address], [place], [address], 0 07:11:14 Referral None recorded. Procedures None recorded. Surgeries None recorded. Imaging None recorded. Medication Orders sildenafil 100 mg tablet 2024 025 [facility], [address] [place] [address], [address], 5 12:33:43 vardenafil 20 mg tablet 2021 022 [facility], [address] [place] [address], [address], 3 12:58:00 Viagra 100 mg tablet 2018 019 INTERFACE Not available 9 12:33:57 carvedilol 3.125 mg tablet 2018 019 oajao Not available 9 12:43:44 Patient TargetsNo targets recorded. Patient Instructions Encounter Date Encounter Id Patient Instructions Last Modified By Organization Details Last Modified Time 09/09/2018 [id number] high blood pressure: care instructions oajao Not available 09/09/2018 12:27:26 learning about high blood pressure oajao Not available 09/09/2018 12:27:26 Colonoscopy report from [facility] Monitor BP RN BP check FU 2 weeks and 1 year and PRN as long as the BP is at goal oajao Not available 09/09/2018 12:55:58 Consults were discussed oajao Not available 09/09/2018 12:56:29 08/21/2020 [id number] Labs in 11 month s Follow up in 1 year and PRN oajao Not available 08/21/2020 12:45:48 09/28/2021 [id number] Labs Levitra Monitor blood pressure BP check next week Follow up in 6 months and PRN oajao Not available 09/28/2021 13:23:24 Detailed discussion about his need for the COVID vaccine despite his previous infection as he has a significant cardiac history and a at home. oajao Not available 09/28/2021 20:12:20 05/29/2023 [id number] abnormal weight loss: care instructions oajao Not available 05/29/2023 13:02:27 Labs Dental exam (Scheduled) Follow up in 1 year and PRN oajao Not available 05/29/2023 13:06:52 10/08/2024 [id number] proteinuria: car e instructions oajao Not available 10/08/2024 14:54:06 fatigue: care instructions oajao Not available 10/08/2024 12:41:20 Labs Continue th e current regimen Follow up in 6 months and PRN Addendum [facility] oajao Not available 10/08/2024 14:57:43 Reason for Referral None Reported. Results Created Date Observation Date Name Description Value Unit Range Abnormal Flag Note LastModifiedBy Organization Detail LastModifiedTime 07/11/2007/12/2020 CBC w/ auto diff WBC 7.3 x10e3 /uL 3.4-10 .8 Not Available [facility] ([facility]) [address] [facility] [address], [place], [address], 07/12/2020 07:11:12 07/11/2007/12/2020 CBC w/ auto diff RBC 5.38 x10e6 /uL 4.14-5 .80 Not Available [facility] ([facility]) [address] [place], [address], 07/12/2020 07:11:12 07/11/2007/12/2020 CBC w/ auto diff hemoglobin 16.5 g/dL 13.0-1 7.7 Not Available [facility] ([facility]) [address] [facility], [place], [address], 07/12/2020 07:11:12 07/11/2007/12/2020 CBC w/ auto diff hematocrit 48.9 % 37.5-5 1.0 Not Available [facility] ([facility]) [address] [facility], [place], [address], 07/12/2020 07:11:12 07/11/2007/12/2020 CBC w/ auto diff MCV 91 fL 79-97 Not Available [facility] ([facility]) [address] [facility] [address], [place], [address], 07/12/2020 07:11:12 07/11/2007/12/2020 CBC w/ auto diff MCH 30.7 pg 26.6-3 3.0 Not Available [facility] ([facility]) [address] [facility], [place], [address], 07/12/2020 07:11:12 07/11/2007/12/2020 CBC w/ auto diff MCHC 33.7 g/dL 31.5-3 5.7 Not Available [facility] ([facility]) [address] [facility], [place], [address], 07/12/2020 07:11:12 07/11/2007/12/2020 CBC w/ auto diff RDW 12.6 % 11.6-1 5.4 Not Available [facility] ([facility]) [address] [facility], [place], [address], 07/12/2020 07:11:12 07/11/2007/12/2020 CBC w/ auto diff platelets 229 x10e3 /uL 150-45 0 Not Available [facility] ([facility]) [address] [facility], [place], [address], 07/12/2020 07:11:12 07/11/2007/12/2020 CBC w/ auto diff neutrophils 58 % not estab. Not Available [facility] ([facility]) [address] [place], [address], 07/12/2020 07:11:12 07/11/20 20 07/12/2020 CBC w/ auto diff lymphs 24 % not estab. Not Available [facility] ([facility]) [address] [facility], [place], [address], 07/12/2020 07:11:12 07/11/20 20 07/12/2020 CBC w/ auto diff monocytes 12 % not estab. Not Available [facility] ([facility]) [address] [place], [address], 07/12/2020 07:11:12 07/11/2007/12/2020 CBC w/ auto diff eos 5 % not estab. Not Available [facility] ([facility]) [address] [place], [address], 07/12/2020 07:11:12 07/11/20 20 07/12/2020 CBC w/ auto diff basos 1 % not estab. 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 0 Not Available [facility] ([facility]) [address] [place], [address], 07/12/2020 07:11:12 07/11/20 20 07/12/2020 CBC w/ auto diff lymphs (absolute) 1.8 x10e3 /uL 0.7-3. 1 Not Available [facility] ([facility]) [address] [facility], [place], [address], 07/12/2020 07:11:12 07/11/2007/12/2020 CBC w/ auto diff monocytes(ab solute) 0.9 x10e3 /uL 0.1-0. 9 Not Available [facility] ([facility]) [address] [facility], [place], [address], 07/12/2020 07:11:12 07/11/2007/12/2020 CBC w/ auto diff eos (absolute) 0.4 x10e3 /uL 0.0-0. 4 Not Available [facility] ([facility]) [address] [facility], [place], [address], 07/12/2020 07:11:12 07/11/2007/12/2020 CBC w/ auto diff baso (absolute) 0.1 x10e3 /uL 0.0-0. 2 Not Available [facility] ([facility]) [address] [facility] [address], [place], [address], 07/12/2020 07:11:12 07/11/2007/12/2020 CBC w/ auto diff immature granulocytes 0 % not estab. Not Available [facility] ([facility]) [address] [facility], [place], [address], 07/12/2020 07:11:12 07/11/2007/12/2020 CBC w/ auto diff immature grans (abs) 0.0 x10e3 /uL 0.0-0. 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 Not Available [facility] ([facility]) [address] [facility], [place], [address], 07/12/2020 07:11:12 07/11/20 20 07/12/2020 CBC w/ auto diff hematology comments: MANAGER [employer]IANCE Not Available [facility]) [address] [facility] [place], [address], 07/12/2020 07:11:12 07/11/20 20 07/12/2020 CMP, serum or plasm a glucose 85 mg/dL 65-99 Not Available [facility] ([facility]) [address] [facility] [place], [address], 07/12/2020 07:11:13 07/11/2007/12/2020 CMP, serum or plasm a BUN 13 mg/dL 6-20 Not Available [facility] ([facility]) [address] [facility] [place], [address], 07/12/2020 07:11:13 07/11/2007/12/2020 CMP, serum or plasm a creatinine 0.93 mg/dL 0.76-1 .27 Not Available [facility] ([facility]) [address] [facility] [place], [address], 07/12/2020 07:11:13 07/11/2007/12/2020 CMP, serum or plasm a eGFR if nonafricn AM 107 mL/mi n/1.7 3 >59 Not Available [facility] ([facility]) [address] [facility] [place], [address], 07/12/2020 07:11:13 07/11/2007/12/2020 CMP, serum or plasm a eGFR if africn AM 124 mL/mi n/1.7 3 >59 Not Available [facility] ([facility]) [address] [facility] [place], [address], 07/12/2020 07:11:13 07/11/20 20 07/12/2020 CMP, serum or plasm a BUN/creatini ne ratio 14 9-20 Not Available [facility] ([facility]) [address] [facility], [place], [address], 07/12/2020 07:11:13 07/11/2007/12/2020 CMP, serum or plasm a sodium 139 mmol/ L 134-14 4 Not Available [facility] ([facility]) [address] [facility] [place], [address], 07/12/2020 07:11:13 07/11/2007/12/2020 CMP, serum or plasm a potassium 5.0 mmol/ L 3.5-5. 2 Not Available [facility] ([facility]) [address] [place], [address], 07/12/2020 07:11:13 07/11/2007/12/2020 CMP, serum or plasm a chloride 99 mmol/ L 96-106 Not Available [facility] ([facility]) [address] [place], [address], 07/12/2020 07:11:13 07/11/2007/12/2020 CMP, serum or plasm a carbon dioxide, total 24 mmol/ L 20-29 Not Available [facility] ([facility]) [address] [place], [address], 07/12/2020 07:11:13 07/11/2007/12/2020 CMP, serum or plasm a calcium 9.5 mg/dL 8.7-10 .2 Not Available [facility] ([facility]) [address] [place], [address], 07/12/2020 07:11:13 07/11/2007/12/2020 CMP, serum or plasm a protein, total 7.3 g/dL 6.0-8. 5 Not Available [facility] ([facility]) [address] [place], [address], 07/12/2020 07:11:13 07/11/2007/12/2020 CMP, serum or plasm a albumin 4.5 g/dL 4.0-5. 0 Not Available [facility] ([facility]) [address] [facility] [place], [address], 07/12/2020 07:11:13 07/11/2007/12/2020 CMP, serum or plasm a globulin, total 2.8 g/dL 1.5-4. 5 Not Available [facility] ([facility]) [address] [facility] [place], [address], 07/12/2020 07:11:13 07/11/2007/12/2020 CMP, serum or plasm a A/G ratio 1.6 1.2-2. 2 Not Available [facility] ([facility]) [address] [facility] [place], [address], 07/12/2020 07:11:13 07/11/2007/12/2020 CMP, serum or plasm a bilirubin, total 0.4 mg/dL 0.0-1. 2 Not Available [facility] ([facility]) [address] [facility] [place], [address], 07/12/2020 07:11:13 07/11/2007/12/2020 CMP, serum or plasm a alkaline phosphatase 54 IU/L 39-117 Not Available [facility] [address] [facility] [place], [address], 07/12/2020 07:11:13 07/11/2007/12/2020 CMP, serum or plasm a AST (SGOT) 19 IU/L 0-40 Not Available [facility] ([facility]) [address] [facility] [place], [address], 07/12/2020 07:11:13 07/11/2007/12/2020 CMP, serum or plasm a ALT (SGPT) 32 IU/L 0-44 Not Available [facility] ([facility]) [address] [facility] [place], [address], 07/12/2020 07:11:13 07/11/2007/12/2020 urina lysis , compl ete specific gravity 1.017 1.005- 1.030 Not Available [facility] ([facility]) [address] [place], [address], 07/12/2020 07:11:14 07/11/2007/12/2020 urina lysis , compl ete pH 6.0 5.0-7. 5 Not Available [facility] ([facility]) [address] [facility], [place], [address], 07/12/2020 07:11:14 07/11/2007/12/2020 urina lysis , compl ete urine-color YELLOW yellow Not Available [facility] ([facility]) [address] [facility], [place], [address], 07/12/2020 07:11:14 07/11/2007/12/2020 urina lysis , compl ete appearance CLEAR clear Not Available [facility] ([facility]) [address] [facility], [place], [address], 07/12/2020 07:11:14 07/11/2007/12/2020 urina lysis , compl ete WBC esterase NEGATI VE negati ve Not Available [facility] ([facility]) [address] [facility], [place], [address], 07/12/2020 07:11:14 07/11/2007/12/2020 urina lysis , compl ete protein NEGATI VE negati ve/tra ce Not Available [facility] ([facility]) [address] [facility], [place], [address], 07/12/2020 07:11:14 07/11/2007/12/2020 urina lysis , compl ete glucose NEGATI VE negati ve Not Available [facility] ([facility]) [address] [place], [address], 07/12/2020 07:11:14 07/11/2007/12/2020 urina lysis , compl ete ketones NEGATI VE negati ve Not Available [facility] ([facility]) [address] [place], [address], 07/12/2020 07:11:14 07/11/2007/12/2020 urina lysis , compl ete occult blood NEGATI VE negati ve Not Available [facility] ([facility]) [address] [place], [address], 07/12/2020 07:11:14 07/11/2007/12/2020 urina lysis , compl ete bilirubin NEGATI VE negati ve Not Available [facility] ([facility]) [address] [place], [address], 07/12/2020 07:11:14 07/11/2007/12/2020 urina lysis , compl ete urobilinogen ,semi-qn 0.2 mg/dL 0.2-1. 0 Not Available [facility] ([facility]) [address] [place], [address], 07/12/2020 07:11:14 07/11/2007/12/2020 urina lysis , compl ete nitrite, urine NEGATI VE negati ve Not Available [facility] ([facility]) [address] [place], [address], 07/12/2020 07:11:14 07/11/2007/12/2020 urina lysis , compl ete microscopic examination COMMEN T Micro scopi c follo ws if indic ated. Not Available [facility] ([facility]) [address] [place], [address], 07/12/2020 07:11:14 07/11/2007/12/2020 urina lysis , compl ete microscopic examination SEE BELOW: Micro scopi c was indic ated and was perfo rmed. Not Available [facility] ([facility]) [address] [place], [address], 07/12/2020 07:11:14 07/11/20 20 07/12/2020 urina lysis , compl ete WBC 0-5 /hpf 0 - 5 Not Available [facility] ([facility]) [address] [facility], [place], [address], 07/12/2020 07:11:14 07/11/2007/12/2020 urina lysis , compl ete RBC NONE SEEN /hpf 0 - 2 Not Available [facility] ([facility]) [address] [facility], [place], [address], 07/12/2020 07:11:14 07/11/2007/12/2020 urina lysis , compl ete epithelial cells (non renal) NONE SEEN /hpf 0 - 10 Not Available [facility] ([facility]) [address] [facility], [place], [address], 07/12/2020 07:11:14 07/11/2007/12/2020 urina lysis , compl ete epithelial cells (renal) MANAGER [employer] Not Available [facility] ([facility] [address] [facility], [place], [address], 07/12/2020 07:11:14 07/11/2007/12/2020 urina lysis , compl ete casts MANAGER [employer] Not Available [facility] ([facility]) [address] [facility], [place], [address], 07/12/2020 07:11:14 07/11/2007/12/2020 urina lysis , compl ete cast type MANAGER [employer] Not Available [facility] ([facility]) [address] [facility], [place], [address], 07/12/2020 07:11:14 07/11/2007/12/2020 urina lysis , compl ete crystals MANAGER [employer] Not Available [facility] ([facility]) [address] [facility], [place], [address], 07/12/2020 07:11:14 07/11/20 20 07/12/2020 urina lysis , compl ete crystal type MANAGER [employer]ANCE Not Available [facility] [address] [facility], [place], [address], 07/12/2020 07:11:14 07/11/20 20 07/12/2020 urina lysis , compl ete mucus threads MANAGER [employer] Not Available [facility] [address] [facility], [place], [address], 07/12/2020 07:11:14 07/11/2007/12/2020 urina lysis , compl ete bacteria NONE SEEN none seen/f ew Not Available [facility] ([facility]) [address] [facility], [place], [address], 07/12/2020 07:11:14 07/11/2007/12/2020 urina lysis , compl ete yeast MANAGER [employer] Not Available [facility] ([facility]) [address] [facility], [place], [address], 07/12/2020 07:11:14 07/11/2007/12/2020 urina lysis , compl ete trichomonas MANAGER [employer] Not Available [facility] [address] [facility], [place], [address], 07/12/2020 07:11:14 07/11/2007/12/2020 urina lysis , compl ete comment MANAGER [employer]IANCE Not Available [facility] ([facility]) [address] [facility], [place], [address], 07/12/2020 07:11:14 07/11/20 20 07/12/2020 lipid panel , serum cholesterol, total 140 mg/dL 100-19 9 Not Available [facility] ([facility]) [address] [facility], [place], [address], 07/12/2020 07:11:15 07/11/20 20 07/12/2020 lipid panel , serum triglyceride s 90 mg/dL 0-149 Not Available [facility] ([facility] [address] [place], [address], 07/12/2020 07:11:15 07/11/20 20 07/12/2020 lipid panel , serum HDL cholesterol 26 mg/dL >39 below low normal Not Available [facility] ([facility]) [address] [place], [address], 07/12/2020 07:11:15 07/11/20 20 07/12/2020 lipid panel , serum VLDL cholesterol sierra 17 mg/dL 5-40 Not Available [facility] ([facility] [address] [place], [address], 07/12/2020 07:11:15 07/11/20 20 07/12/2020 lipid panel , serum LDL chol calc ([facility]) 97 mg/dL 0-99 Not Available [facility] [address] [place], [address], 07/12/2020 07:11:15 07/11/2007/12/2020 lipid panel , serum comment: MANAGER [employer]IANCE Not Available [facility] ([facility] [address] [place], [address], 07/12/2020 07:11:15 12/05/19 22 12/05/2021 LIPID PANEL , STAND ABY cholesterol, total 123 mg/dL <200 normal Not Available [facility] [address] [place], [address], 12/05/2021 12:32:43 12/05/19 22 12/05/2021 LIPID PANEL , STAND ABY HDL cholesterol 24 mg/dL > or = 40 low Not Available [facility] [address] [place], [address], 12/05/2021 12:32:43 12/05/19 22 12/05/2021 LIPID PANEL , STAND ABY triglyceride s 130 mg/dL <150 normal Not Available [facility] [address] [place], [address], 12/05/2021 12:32:43 12/05/19 22 12/05/2021 LIPID PANEL , STAND ABY LDL-choleste rol 78 mg/dL _(sierra c) normal Refer ence range : <100 Amanda able range <100 mg/dL for prima ry preve ntion ; <70 mg/dL for patie nts with CHD or diabe tic patie nts with > or = 2 CHD risk facto rs. LDL-C is now calcu lated using the Sarah n-Hop kins calcu latrodrigo n, which is a valid ated novel hay d carlie weinberg r accur acy than the Fried rajni equat ion in the estim ation of LDL-C . Sarah gaming SS et al. YAHAIRA. 2013; 310(1 9): 2061- 2068 (http ://ed ucati on.Qu Lizy 51fanli. com/f aq/FA Q164) Not Available [facility] [place] [address] [address], [place], [address], 12/05/2021 12:32:43 12/05/19 22 12/05/2021 LIPID PANEL , STAND ABY chol/HDLC ratio 5.1 (calc ) <5.0 high Not Available [facility] [address] [place], [address], 12/05/2021 12:32:43 12/05/19 22 12/05/2021 LIPID PANEL , STAND ABY non HDL cholesterol 99 mg/dL _(sierra c) <130 normal For patie nts with diabe mehreen plus 1 major ASCVD risk facto r, treat ing to a non-H DL-C goal of <100 mg/dL (LDL- C of <70 mg/dL ) is consi ponce mckeon c optio n. Not Available [facility] [address] [place], [address], 12/05/2021 12:32:43 12/05/19 22 12/05/2021 SPECI MEN INTEG RITY COMPR OMISE D specimen integrity compromised Whole blood , unspu n or parti ally spun gel barri er tube was recei heraclio more than 6 hours since colle ction . A false eleva tion of K, Phos and LD as well as a false decre ase in gluco se may occur due to prolo nged conta ct with red cells . Not Available [address], [address], 12/05/2021 12:32:44 12/05/19 22 12/05/2021 COMPR EHENS LEXUS METAB OLIC PANEL glucose 59 mg/dL 65-99 low Fasti ng refer ence inter adriane Not Available [address], [address], 12/05/2021 12:32:44 12/05/19 22 12/05/2021 COMPR EHENS LEXUS METAB OLIC PANEL urea nitrogen (BUN) 13 mg/dL 7-25 normal Not Available [address], [address], 12/05/2021 12:32:44 12/05/19 22 12/05/2021 COMPR EHENS LEXUS METAB OLIC PANEL creatinine 0.99 mg/dL 0.60-1 .35 normal Not Available [address], [address], 12/05/2021 12:32:44 12/05/19 22 12/05/2021 COMPR EHENS LEXUS METAB OLIC PANEL eGFR non-afr. pitcairn islander 99 mL/mi n/1.7 3m2 > or = 60 normal Not Available [address], [address], 12/05/2021 12:32:44 12/05/19 22 12/05/2021 COMPR EHENS LEXUS METAB OLIC PANEL eGFR 115 mL/mi n/1.7 3m2 > or = 60 normal Not Available [address], [place], [address], 12/05/2021 12:32:44 12/05/19 22 12/05/2021 COMPR EHENS LEXUS METAB OLIC PANEL BUN/creatini ne ratio NOT APPLIC ABLE (calc ) 6-22 Not Available [address], [address], 12/05/2021 12:32:44 12/05/19 22 12/05/2021 COMPR EHENS LEXUS METAB OLIC PANEL sodium 138 mmol/ L 135-14 6 normal Not Available [address], [address], 12/05/2021 12:32:44 12/05/19 22 12/05/2021 COMPR EHENS LEXUS METAB OLIC PANEL potassium 4.4 mmol/ L 3.5-5. 3 normal Not Available [address], [address], 12/05/2021 12:32:44 12/05/19 22 12/05/2021 COMPR EHENS LEXUS METAB OLIC PANEL chloride 100 mmol/ L 98-110 normal Not Available [address], [address], 12/05/2021 12:32:44 12/05/19 22 12/05/2021 COMPR EHENS LEXUS METAB OLIC PANEL carbon dioxide 27 mmol/ L 20-32 normal Not Available [address], [address], 12/05/2021 12:32:44 12/05/19 22 12/05/2021 COMPR EHENS LEXUS METAB OLIC PANEL calcium 10.1 mg/dL 8.6-10 .3 normal Not Available [address], [address], 12/05/2021 12:32:44 12/05/19 22 12/05/2021 COMPR EHENS LEXUS METAB OLIC PANEL protein, total 7.5 g/dL 6.1-8. 1 normal Not Available [address], [address], 12/05/2021 12:32:44 12/05/19 22 12/05/2021 COMPR EHENS LEXUS METAB OLIC PANEL albumin 4.3 g/dL 3.6-5. 1 normal Not Available [address], [address], 12/05/2021 12:32:44 12/05/19 22 12/05/2021 COMPR EHENS LEXUS METAB OLIC PANEL globulin 3.2 g/dL_ (calc ) 1.9-3. 7 normal Not Available [address], [address], 12/05/2021 12:32:44 12/05/19 22 12/05/2021 COMPR EHENS LEXUS METAB OLIC PANEL albumin/glob ulin ratio 1.3 (calc ) 1.0-2. 5 normal Not Available [address], [address], 12/05/2021 12:32:44 12/05/19 22 12/05/2021 COMPR EHENS LEXUS METAB OLIC PANEL bilirubin, total 0.3 mg/dL 0.2-1. 2 normal Not Available [address], [address], 12/05/2021 12:32:44 12/05/19 22 12/05/2021 COMPR EHENS LEXUS METAB OLIC PANEL alkaline phosphatase 47 U/L 36-130 normal Not Available [facility] [employer] [address], [address], 12/05/2021 12:32:44 12/05/19 22 12/05/2021 COMPR EHENS LEXUS METAB OLIC PANEL AST 21 U/L 10-40 normal Not Available [facility] [address], [address], 12/05/2021 12:32:44 12/05/19 22 12/05/2021 COMPR EHENS LEXUS METAB OLIC PANEL ALT 28 U/L 9-46 normal Not Available [address], [address], 12/05/2021 12:32:44 12/05/19 22 12/05/2021 URINA LYSIS , COMPL ETE color YELLOW yellow normal Not Available [address], [address], 12/05/2021 12:32:44 12/05/19 22 12/05/2021 URINA LYSIS , COMPL ETE appearance CLEAR clear normal Not Available [address], [address], 12/05/2021 12:32:44 12/05/19 22 12/05/2021 URINA LYSIS , COMPL ETE specific gravity 1.020 1.001- 1.035 normal Not Available [address], [address], 12/05/2021 12:32:44 12/05/19 22 12/05/2021 URINA LYSIS , COMPL ETE pH 5.5 5.0-8. 0 normal Not Available [address], [address], 12/05/2021 12:32:44 12/05/19 22 12/05/2021 URINA LYSIS , COMPL ETE glucose NEGATI VE negati ve normal Not Available [address], [address], 12/05/2021 12:32:44 12/05/19 22 12/05/2021 URINA LYSIS , COMPL ETE bilirubin NEGATI VE negati ve normal Not Available [address], [address], 12/05/2021 12:32:44 12/05/19 22 12/05/2021 URINA LYSIS , COMPL ETE ketones NEGATI VE negati ve normal Not Available [address], [address], 12/05/2021 12:32:44 12/05/19 22 12/05/2021 URINA LYSIS , COMPL ETE occult blood TRACE negati ve abnormal Not Available [address], [address], 12/05/2021 12:32:44 12/05/19 22 12/05/2021 URINA LYSIS , COMPL ETE protein NEGATI VE negati ve normal Not Available [address], [address], 12/05/2021 12:32:44 12/05/19 22 12/05/2021 URINA LYSIS , COMPL ETE nitrite NEGATI VE negati ve normal Not Available [address], [address], 12/05/2021 12:32:44 12/05/19 22 12/05/2021 URINA LYSIS , COMPL ETE leukocyte esterase NEGATI VE negati ve normal Not Available [address], [address], 12/05/2021 12:32:44 12/05/19 22 12/05/2021 URINA LYSIS , COMPL ETE WBC NONE SEEN /hpf < or = 5 normal Not Available [address], [address], 12/05/2021 12:32:44 12/05/19 22 12/05/2021 URINA LYSIS , COMPL ETE RBC 0-2 /hpf < or = 2 normal Not Available [address], [address], 12/05/2021 12:32:44 12/05/19 22 12/05/2021 URINA LYSIS , COMPL ETE squamous epithelial cells NONE SEEN /hpf < or = 5 normal Not Available [address], [address], 12/05/2021 12:32:44 12/05/19 22 12/05/2021 URINA LYSIS , COMPL ETE bacteria NONE SEEN /hpf none seen normal Not Available [address], [address], 12/05/2021 12:32:44 12/05/19 22 12/05/2021 URINA LYSIS , COMPL ETE hyaline cast NONE SEEN /lpf none seen normal Not Available [address], [address], 12/05/2021 12:32:44 12/05/19 22 12/05/2021 CBC (INCL UDES DIFF/ PLT) white blood cell count 7.1 thous and/u L 3.8-10 .8 normal Not Available [address], [address], 12/05/2021 12:32:45 12/05/19 22 12/05/2021 CBC (INCL UDES DIFF/ PLT) red blood cell count 5.08 chang on/uL 4.20-5 .80 normal Not Available [address], [address], 12/05/2021 12:32:45 12/05/19 22 12/05/2021 CBC (INCL UDES DIFF/ PLT) hemoglobin 15.7 g/dL 13.2-1 7.1 normal Not Available [address], [address], 12/05/2021 12:32:45 12/05/19 22 12/05/2021 CBC (INCL UDES DIFF/ PLT) hematocrit 46.1 % 38.5-5 0.0 normal Not Available [address], [address], 12/05/2021 12:32:45 12/05/19 22 12/05/2021 CBC (INCL UDES DIFF/ PLT) MCV 90.7 fL 80.0-1 00.0 normal Not Available [address], [address], 12/05/2021 12:32:45 12/05/19 22 12/05/2021 CBC (INCL UDES DIFF/ PLT) MCH 30.9 pg 27.0-3 3.0 normal Not Available [address], [address], 12/05/2021 12:32:45 12/05/19 22 12/05/2021 CBC (INCL UDES DIFF/ PLT) MCHC 34.1 g/dL 32.0-3 6.0 normal Not Available [address], [address], 12/05/2021 12:32:45 12/05/19 22 12/05/2021 CBC (INCL UDES DIFF/ PLT) RDW 12.1 % 11.0-1 5.0 normal Not Available [address], [address], 12/05/2021 12:32:45 12/05/19 22 12/05/2021 CBC (INCL UDES DIFF/ PLT) platelet count 291 thous and/u L 140-40 0 normal Not Available [address], [address], 12/05/2021 12:32:45 12/05/19 22 12/05/2021 CBC (INCL UDES DIFF/ PLT) MPV 10.9 fL 7.5-12 .5 normal Not Available [address], [address], 12/05/2021 12:32:45 12/05/19 22 12/05/2021 CBC (INCL UDES DIFF/ PLT) absolute neutrophils 4310 cells /uL 1500-7 800 normal Not Available [address], [address], 12/05/2021 12:32:45 12/05/19 22 12/05/2021 CBC (INCL UDES DIFF/ PLT) absolute lymphocytes 1598 cells /uL 850-39 00 normal Not Available [address], [address], 12/05/2021 12:32:45 12/05/19 22 12/05/2021 CBC (INCL UDES DIFF/ PLT) absolute monocytes 888 cells /uL 200-95 0 normal Not Available [address], [address], 12/05/2021 12:32:45 12/05/19 22 12/05/2021 CBC (INCL UDES DIFF/ PLT) absolute eosinophils 263 cells /uL 15-500 normal Not Available [address], [address], 12/05/2021 12:32:45 12/05/19 22 12/05/2021 CBC (INCL UDES DIFF/ PLT) absolute basophils 43 cells /uL 0-200 normal Not Available [address], [address], 12/05/2021 12:32:45 12/05/19 22 12/05/2021 CBC (INCL UDES DIFF/ PLT) neutrophils 60.7 % normal Not Available [address], [address], 12/05/2021 12:32:45 12/05/19 22 12/05/2021 CBC (INCL UDES DIFF/ PLT) lymphocytes 22.5 % normal Not Available [address], [address], 12/05/2021 12:32:45 12/05/19 22 12/05/2021 CBC (INCL UDES DIFF/ PLT) monocytes 12.5 % normal Not Available [address], [address], 12/05/2021 12:32:45 12/05/19 22 12/05/2021 CBC (INCL UDES DIFF/ PLT) eosinophils 3.7 % normal Not Available [address], [address], 12/05/2021 12:32:45 12/05/19 22 12/05/2021 CBC (INCL UDES DIFF/ PLT) basophils 0.6 % normal Not Available [address], [address], 12/05/2021 12:32:45 01/19/20 22 01/19/2022 URINA LYSIS , COMPL ETE W/REF JUAN MANUEL TO CULTU RE color YELLOW yellow normal Not Available [address], [address], 01/19/2022 05:54:18 01/19/20 22 01/19/2022 URINA LYSIS , COMPL ETE W/REF JUAN MANUEL TO CULTU RE appearance CLEAR clear normal Not Available [address], [address], 01/19/2022 05:54:18 01/19/20 22 01/19/2022 URINA LYSIS , COMPL ETE W/REF JUAN MANUEL TO CULTU RE specific gravity 1.023 1.001- 1.035 normal Not Available [address], [address], 01/19/2022 05:54:18 01/19/20 22 01/19/2022 URINA LYSIS , COMPL ETE W/REF JUAN MANUEL TO CULTU RE pH 5.5 5.0-8. 0 normal Not Available [facility] [address], [place], [address], 01/19/2022 05:54:18 01/19/20 22 01/19/2022 URINA LYSIS , COMPL ETE W/REF JUAN MANUEL TO CULTU RE glucose NEGATI VE negati ve normal Not Available [facility] [place] [address] [place], [address], 01/19/2022 05:54:18 01/19/20 22 01/19/2022 URINA LYSIS , COMPL ETE W/REF JUAN MANUEL TO CULTU RE bilirubin NEGATI VE negati ve normal Not Available [facility] [address], [address], 01/19/2022 05:54:18 01/19/20 22 01/19/2022 URINA LYSIS , COMPL ETE W/REF JUAN MANUEL TO CULTU RE ketones NEGATI VE negati ve normal Not Available [facility] [address], [address], 01/19/2022 05:54:18 01/19/20 22 01/19/2022 URINA LYSIS , COMPL ETE W/REF JUAN MANUEL TO CULTU RE occult blood TRACE negati ve abnormal Not Available [facility] [address], [address], 01/19/2022 05:54:18 01/19/20 22 01/19/2022 URINA LYSIS , COMPL ETE W/REF JUAN MANUEL TO CULTU RE protein NEGATI VE negati ve normal Not Available [facility] [address] [place] [address] [place], [address], 01/19/2022 05:54:18 01/19/20 22 01/19/2022 URINA LYSIS , COMPL ETE W/REF JUAN MANUEL TO CULTU RE nitrite NEGATI VE negati ve normal Not Available [facility] [address] [place], [address], 01/19/2022 05:54:18 01/19/20 22 01/19/2022 URINA LYSIS , COMPL ETE W/REF JUAN MANUEL TO CULTU RE leukocyte esterase NEGATI VE negati ve normal Not Available [address], [address], 01/19/2022 05:54:18 01/19/20 22 01/19/2022 URINA LYSIS , COMPL ETE W/REF JUAN MANUEL TO CULTU RE WBC NONE SEEN /hpf < or = 5 normal Not Available [address], [address], 01/19/2022 05:54:18 01/19/20 22 01/19/2022 URINA LYSIS , COMPL ETE W/REF JUAN MANUEL TO CULTU RE RBC NONE SEEN /hpf < or = 2 normal Not Available [address], [address], 01/19/2022 05:54:18 01/19/20 22 01/19/2022 URINA LYSIS , COMPL ETE W/REF JUAN MANUEL TO CULTU RE squamous epithelial cells NONE SEEN /hpf < or = 5 normal Not Available [address], [address], 01/19/2022 05:54:18 01/19/20 22 01/19/2022 URINA LYSIS , COMPL ETE W/REF JUAN MANUEL TO CULTU RE bacteria NONE SEEN /hpf none seen normal Not Available [address], [address], 01/19/2022 05:54:18 01/19/20 22 01/19/2022 URINA LYSIS , COMPL ETE W/REF JUAN MANUEL TO CULTU RE hyaline cast NONE SEEN /lpf none seen normal Not Available [address], [address], 01/19/2022 05:54:18 01/19/20 22 01/19/2022 REFLE XIVE URINE CULTU RE reflexive urine culture NO CULTU RE INDIC ATED Not Available [facility] [place] [address] [place], [address], 01/19/2022 05:54:18 05/27/2005/27/2024 LIPID PANEL , STAND ABY cholesterol, total 128 mg/dL <200 normal Not Available [facility] [address] [place], [address], 05/28/2024 00:29:24 05/27/20 24 05/27/2024 LIPID PANEL , STAND ABY HDL cholesterol 27 mg/dL > or = 40 low Not Available [facility] [place] [address] [place], [address], 05/28/2024 00:29:24 05/27/20 24 05/27/2024 LIPID PANEL , STAND ABY triglyceride s 91 mg/dL <150 normal Not Available [facility] [place] [address] [place], [address], 05/28/2024 00:29:24 05/27/20 24 05/27/2024 LIPID PANEL , STAND ABY LDL-choleste rol 82 mg/dL _(sierra c) normal Refer ence range : <100 Amanda able range <100 mg/dL for prima ry preve ntion ; <70 mg/dL for patie nts with CHD or diabe tic patie nts with > or = 2 CHD risk facto rs. LDL-C is now calcu lated using the Sarah n-Hop kins calcu sosa n, which is a valid ated novel preethio d carlie weinberg r accur acy than the Fried rajni equat ion in the estim ation of LDL-C . Sarah gaming SS et al. YAHAIRA. 2013; 310(1 9): 2061- 2068 (http ://ed ucati on.Qu Lizy melendezs. com/f aq/FA Q164) Not Available [facility] [address] [place], [address], 05/28/2024 00:29:24 05/27/2005/27/2024 LIPID PANEL , STAND ABY chol/HDLC ratio 4.7 (calc ) <5.0 normal Not Available [address], [address], 05/28/2024 00:29:24 05/27/20 24 05/27/2024 LIPID PANEL , STAND ABY non HDL cholesterol 101 mg/dL _(sierra c) <130 normal For patie nts with diabe mehreen plus 1 major ASCVD risk facto r, treat ing to a non-H DL-C goal of <100 mg/dL (LDL- C of <70 mg/dL ) is consi dered a thera peuti c optio n. Not Available [address], [address], 05/28/2024 00:29:24 05/27/2005/27/2024 BASIC METAB OLIC PANEL glucose 87 mg/dL 65-99 normal Fasti ng refer ence inter adriane Not Available [address], [address], 05/28/2024 00:29:24 05/27/2005/27/2024 BASIC METAB OLIC PANEL urea nitrogen (BUN) 12 mg/dL 7-25 normal Not Available [address], [address], 05/28/2024 00:29:24 05/27/2005/27/2024 BASIC METAB OLIC PANEL creatinine 0.83 mg/dL 0.60-1 .26 normal Not Available [address] [place], [address], 05/28/2024 00:29:24 05/27/2005/27/2024 BASIC METAB OLIC PANEL eGFR 116 mL/mi n/1.7 3m2 > or = 60 normal Not Available [address], [address], 05/28/2024 00:29:24 05/27/20 24 05/27/2024 BASIC METAB OLIC PANEL BUN/creatini ne ratio SEE NOTE: (calc ) 6-22 Not Repor armand: BUN and Creat inine are withi n refer ence range . Not Available [address], [address], 05/28/2024 00:29:24 05/27/20 24 05/27/2024 BASIC METAB OLIC PANEL sodium 136 mmol/ L 135-14 6 normal Not Available [address], [address], 05/28/2024 00:29:24 05/27/2005/27/2024 BASIC METAB OLIC PANEL potassium 4.3 mmol/ L 3.5-5. 3 normal Not Available [address], [address], 05/28/2024 00:29:24 05/27/20 24 05/27/2024 BASIC METAB OLIC PANEL chloride 104 mmol/ L 98-110 normal Not Available [address], [address], 05/28/2024 00:29:24 05/27/20 24 05/27/2024 BASIC METAB OLIC PANEL carbon dioxide 26 mmol/ L 20-32 normal Not Available [address], [address], 05/28/2024 00:29:24 05/27/20 24 05/27/2024 BASIC METAB OLIC PANEL calcium 9.4 mg/dL 8.6-10 .3 normal Not Available [address], [address], 05/28/2024 00:29:24 05/27/20 24 05/27/2024 URINA LYSIS , COMPL ETE color YELLOW yellow normal Not Available [address], [address], 05/28/2024 00:29:25 05/27/20 24 05/27/2024 URINA LYSIS , COMPL ETE appearance CLEAR clear normal Not Available [address], [address], 05/28/2024 00:29:25 05/27/20 24 05/27/2024 URINA LYSIS , COMPL ETE specific gravity 1.028 1.001- 1.035 normal Not Available [address], [address], 05/28/2024 00:29:25 05/27/20 24 05/27/2024 URINA LYSIS , COMPL ETE pH 6.0 5.0-8. 0 normal Not Available [address], [address], 05/28/2024 00:29:25 05/27/20 24 05/27/2024 URINA LYSIS , COMPL ETE glucose NEGATI VE negati ve normal Not Available [address], [address], 05/28/2024 00:29:25 05/27/20 24 05/27/2024 URINA LYSIS , COMPL ETE bilirubin NEGATI VE negati ve normal Not Available [address], [address], 05/28/2024 00:29:25 05/27/20 24 05/27/2024 URINA LYSIS , COMPL ETE ketones NEGATI VE negati ve normal Not Available [address], [address], 05/28/2024 00:29:25 05/27/20 24 05/27/2024 URINA LYSIS , COMPL ETE occult blood NEGATI VE negati ve normal Not Available [address], [address], 05/28/2024 00:29:25 05/27/20 24 05/27/2024 URINA LYSIS , COMPL ETE protein TRACE negati ve abnormal Not Available [address], [address], 05/28/2024 00:29:25 05/27/20 24 05/27/2024 URINA LYSIS , COMPL ETE nitrite NEGATI VE negati ve normal Not Available [address], [address], 05/28/2024 00:29:25 05/27/20 24 05/27/2024 URINA LYSIS , COMPL ETE leukocyte esterase NEGATI VE negati ve normal Not Available [address], [address], 05/28/2024 00:29:25 05/27/20 24 05/27/2024 URINA LYSIS , COMPL ETE WBC NONE SEEN /hpf < or = 5 normal Not Available [address], [address], 05/28/2024 00:29:25 05/27/20 24 05/27/2024 URINA LYSIS , COMPL ETE RBC 0-2 /hpf < or = 2 normal Not Available [address], [address], 05/28/2024 00:29:25 05/27/20 24 05/27/2024 URINA LYSIS , COMPL ETE squamous epithelial cells NONE SEEN /hpf < or = 5 normal Not Available [address], [address], 05/28/2024 00:29:25 05/27/20 24 05/27/2024 URINA LYSIS , COMPL ETE bacteria NONE SEEN /hpf none seen normal Not Available [address], [address], 05/28/2024 00:29:25 05/27/20 24 05/27/2024 URINA LYSIS , COMPL ETE hyaline cast 0-5 /lpf none seen abnormal Not Available [address], [address], 05/28/2024 00:29:25 05/27/20 24 05/27/2024 URINA LYSIS , COMPL ETE note This urine was vahid zed for the prese nce of WBC, RBC, bacte vonda, casts , and other forme d eleme nts. Only those eleme nts seen were repor armand. Not Available [address], [address], 05/28/2024 00:29:25 05/27/20 24 05/27/2024 CBC (INCL UDES DIFF/ PLT) white blood cell count 6.6 thous and/u L 3.8-10 .8 normal Not Available [address], [address], 05/28/2024 00:29:25 05/27/20 24 05/27/2024 CBC (INCL UDES DIFF/ PLT) red blood cell count 5.17 chang on/uL 4.20-5 .80 normal Not Available [address], [address], 05/28/2024 00:29:25 05/27/20 24 05/27/2024 CBC (INCL UDES DIFF/ PLT) hemoglobin 15.6 g/dL 13.2-1 7.1 normal Not Available [address], [address], 05/28/2024 00:29:25 05/27/20 24 05/27/2024 CBC (INCL UDES DIFF/ PLT) hematocrit 48.3 % 38.5-5 0.0 normal Not Available [facility] [address], [address], 05/28/2024 00:29:25 05/27/20 24 05/27/2024 CBC (INCL UDES DIFF/ PLT) MCV 93.4 fL 80.0-1 00.0 normal Not Available [address], [address], 05/28/2024 00:29:25 05/27/20 24 05/27/2024 CBC (INCL UDES DIFF/ PLT) MCH 30.2 pg 27.0-3 3.0 normal Not Available [address], [address], 05/28/2024 00:29:25 05/27/20 24 05/27/2024 CBC (INCL UDES DIFF/ PLT) MCHC 32.3 g/dL 32.0-3 6.0 normal Not Available [address], [address], 05/28/2024 00:29:25 05/27/20 24 05/27/2024 CBC (INCL UDES DIFF/ PLT) RDW 12.4 % 11.0-1 5.0 normal Not Available [address], [address], 05/28/2024 00:29:25 05/27/20 24 05/27/2024 CBC (INCL UDES DIFF/ PLT) platelet count 218 thous and/u L 140-40 0 normal Not Available [address], [address], 05/28/2024 00:29:25 05/27/20 24 05/27/2024 CBC (INCL UDES DIFF/ PLT) MPV 10.8 fL 7.5-12 .5 normal Not Available [address], [address], 05/28/2024 00:29:25 05/27/20 24 05/27/2024 CBC (INCL UDES DIFF/ PLT) absolute neutrophils 3848 cells /uL 1500-7 800 normal Not Available [address], [place], [address], 05/28/2024 00:29:25 05/27/20 24 05/27/2024 CBC (INCL UDES DIFF/ PLT) absolute lymphocytes 1558 cells /uL 850-39 00 normal Not Available [facility] [address], [address], 05/28/2024 00:29:25 05/27/20 24 05/27/2024 CBC (INCL UDES DIFF/ PLT) absolute monocytes 752 cells /uL 200-95 0 normal Not Available [facility] [address], [address], 05/28/2024 00:29:25 05/27/20 24 05/27/2024 CBC (INCL UDES DIFF/ PLT) absolute eosinophils 383 cells /uL 15-500 normal Not Available [facility] [address], [address], 05/28/2024 00:29:25 05/27/20 24 05/27/2024 CBC (INCL UDES DIFF/ PLT) absolute basophils 59 cells /uL 0-200 normal Not Available [facility] [address], [address], 05/28/2024 00:29:25 05/27/20 24 05/27/2024 CBC (INCL UDES DIFF/ PLT) neutrophils 58.3 % normal Not Available [facility] [address], [address], 05/28/2024 00:29:25 05/27/20 24 05/27/2024 CBC (INCL UDES DIFF/ PLT) lymphocytes 23.6 % normal Not Available [facility] [address], [address], 05/28/2024 00:29:25 05/27/20 24 05/27/2024 CBC (INCL UDES DIFF/ PLT) monocytes 11.4 % normal Not Available [facility] [address] [place], [address], 05/28/2024 00:29:25 05/27/20 24 05/27/2024 CBC (INCL UDES DIFF/ PLT) eosinophils 5.8 % normal Not Available [facility] [address], [address], 05/28/2024 00:29:25 05/27/20 24 05/27/2024 CBC (INCL UDES DIFF/ PLT) basophils 0.9 % normal Not Available [facility] [address] [place], [address], 05/28/2024 00:29:25 05/27/20 24 05/27/2024 TSH TSH 2.64 mIU/L 0.40-4 .50 normal Not Available [address], [address], 05/28/2024 00:29:26 03/24/20 19 03/22/2019 trans -thor acic echoc ardio gram (TTE) (PROC ) No observ ation record ed. [facility] [address], [place], [address], 08/21/2020 12:38:41 07/27/20 20 07/26/2020 US, echoc ardio gram, trans thora cic, compl ete, w/ color flow No observ ation record ed. [facility] [address], [place], [address], 08/21/2020 12:38:40 02/12/20 22 02/11/2022 US, yessenia mark No observ ation record ed. [facility] On Lab Orders [address] [facility], [place], [address], 05/29/2023 12:46:13 Result Notes None recorded. 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 Raffy Milan MD Attn: Neda cruz,[address] [place], [address], [place] [facility] 5 14:58:07 History of aortic valve repair 3462968334478 05 Active 2016 Raffy Milan MD Attn: Ronakcheyenne cruz,[address] [place], [address], [place] [facility] 7 12:16:35 Ulcerative colitis 28834288 Active 2016 Raffy Milan MD Attn: Ronakcheyenne cruz,[address] [place], [address], [place] [facility] 5 14:57:47 Impotence Active 2016 Raffy Milan MD Attn: Ronakcheyenne cruz,[address] [place], [address], [place] [facility] 7 12:17:06 Influenza vaccination declined 270165322 Active 2018 Raffy Milan MD Attn: Ronakcheyenne cruz,[address] [place], [address], [place] [facility] 9 12:22:07 Primary erectile dysfunction 776324306 Active 2018 Raffy Milan MD Attn: Neda nancy,[address] [place], [address], [place] [facility] 5 14:58:02 History of aortic valve replacement 5131524752327 Active 2018 Raffy Milan MD Attn: Ronakcheyenne cruz,[address] [place], [address], [place] [facility] 5 14:57:57 Prosthetic heart valve in situ 060817318 Active 2018 Raffy Milan MD Attn: Neda nancy,[address] [place], [address], [place] [facility] 9 12:52:16 Aortic valve regurgitati on 58255510 Active 2018 Raffy Milan MD Attn: Neda cruz,[address] [facility], [place], [address], [facility] 5 14:57:50 Benign essential hypertensio n 0053662 Active 2021 Raffy Milan MD Attn: Neda cruz,[address] [facility], [place], [address], [facility] 5 14:57:54 Problem Notes None recorded. Procedures Surgical History Date Name Laterality Status Provider Name and Address Organization Details Recorded Time 9 Heart Surgery completed Raffy Milan MD Attn: Accounting,[address] [facility], [place], [address], [facility] 09/09/2018 12:52:52 9 Repair of aortic valve completed Raffy Milan MD Attn: Accounting,[address] [facility], [place], [address], [facility] 05/02/2017 11:12:32 7 Heart Surgery completed Adrienne Moise MA [facility] 05/02/2017 10:58:05 Imaging Results None recorded. Procedure Notes None recorded. Medical Equipment None Reported. Allergies No known drug allergies Medications Name Sig Start Date Stop Date Status Note LastModified by Organization Details LastModified Time amoxicillin 500 mg capsule TAKE FOUR CAPSULES BY MOUTH ONE HOUR BEFORE APPOINTME NT BOTH DAYS 05/29 completed Not Available Not Available Not Available prednisone 10 mg tablet 10/08 completed Not Available Not Available Not Available warfarin 10 mg tablet TAKE 1 TABLET BY MOUTH ONCE DAILY DIRECTED active Not Available Not Available No t Available lisinopril 20 mg tablet TAKE 1 TABLET BY MOUTH ONCE DAILY active Not Available Not Available No t Available Nexium 40 mg capsule,del ayed release Take 1 capsule every day by oral route. 09/28 completed Not Available Not Available Not Available sildenafil 100 mg tablet Take 1 tablet every day by oral route as needed for 30 days, for ED. 2024 active Not Available Not Available Not Avai lable carvedilol 3.125 mg tablet TAKE ONE TABLET BY MOUTH TWICE DAILY EVERY MORNING & EVENING FOR BLOOD PRESSURE & HEART 2024 active Not Available Not Available Not Avai lable methotrexat e sodium 2.5 mg tablet 08/21 completed Not Available Not Available Not Available folic acid 1 mg tablet 05/29 completed Not Available Not Available Not Available ergocalcife rol (vitamin D2) 1,250 mcg (50,000 unit) capsule active Not Available Not Available Not Available esomeprazol e magnesium 20 mg capsule,del ayed release active Not Available Not Available Not Available vardenafil 20 mg tablet TAKE 1 TABLET BY MOUTH ONCE DAILY NEEDED FOR 30 DAYS 05/29 completed Not Available Not Available Not Available tadalafil 5 mg tablet TAKE 1 TABLET BY MOUTH ONCE DAILY DIRECTED 10/08 completed Back pain Not Available Not Available Not Available Humira Pen 40 mg/0.8 mL subcutaneou s kit Inject 0.8 mL every 2 weeks by subcutane ous route. active UC Not Available Not Available No t Available GaviLyte-G 236 gram-22.74 gram-6.74 gram-5.86 gram oral solution 09/09 completed Not Available Not Available Not Available Humira(CF) Pen 40 mg/0.4 mL subcutaneou s kit active Not Available Not Available Not Available Humira(CF) Pen Crohn's-Ulc Colitis-Hid Sup Strt 80 mg/0.8 mL subcut kt active Not Available Not Available No t Available Vitals Date Recorded Body height Body mass index (BMI) Body weight Body temperature Heart rate Oxygen saturation Oxygen saturation in Arterial blood by Pulse oximetry Systolic And Diastolic Provider Name and Address Organization Details Last Updated DateTime 9 165.1 cm 26.1 kg/m2 44318 g 97.9 [degF] 70 /min 99 % 99 % 130/96 mm[Hg] Adrienne Moise MA [place] - [facility] 9 12:16:41 Date Recorded Respiratory rate Systolic And Diastolic Provider Name and Address Organization Details Last Updated DateTime 09/28/2021 12 /min 130/90 mm[Hg] Raffy Milan MD Attn: Accounting,[address] [place], [address] 09/28/2021 13:18:24 Date Recorded Body height Body mass index (BMI) Body weight Body temperature Oxygen saturation Oxygen saturation in Arterial blood by Pulse oximetry Heart rate Systolic And Diastolic Provider Name and Address Organization Details Last Updated DateTime 2 161.29 cm 26.5 kg/m2 48507.3 2 g 98.5 [degF] 98 % 98 % 69 /min 130/96 mm[Hg] Jagdish Brown MA [facility] 2 12:50:58 Date Recorded Body weight Heart rate Oxygen saturation Oxygen saturation in Arterial blood by Pulse oximetry Body temperature Systolic And Diastolic Provider Name and Address Organization Details Last Updated DateTime 5 58865.8 6 g 73 /min 98 % 98 % 98.4 [degF] 128/72 mm[Hg] Adrienne Moise MA [facility] 5 12:11:11 Date Recorded Body height Oxygen saturation Oxygen saturation in Arterial blood by Pulse oximetry Heart rate Respiratory rate Body mass index (BMI) Body weight Systolic And Diastolic Provider Name and Address Organization Details Last Updated DateTime 3 161.29 cm 99 % 99 % 70 /min 14 /min 24.8 kg/m2 39998.1 2 g 120/84 mm[Hg] Adrienne Moise MA [facility] 3 12:43:23 Social History Question Answer Notes LastModified by Organizat ion Details LastModified Time Tobacco Smoking Status Never Smoker Adrienne Moise MA null, [facility] 05/02/2017 10:57:28 What Is Your Level Of Caffeine Consumption? Heavy Information not available 09/09/2018 How Much Tobacco Do You Chew? None Information not available 08/21/2020 What Type Of Diet Are You Following? REGULAR Information not available 08/21/2020 Which Illicit Or Recreational Drugs Have You Used? None Information not available 09/09/2018 Hard Of Hearing Or Deaf In One Or Both Ears? No Information not available 08/21/2020 Legally Blind In One Or Both Eyes? No Information no t available 08/21/2020 What Was The Date Of Your Most Recent Tobacco Screening? 10/08/2024 Information not available 10/08/2024 Performs Monthly Self-breast Exam? No Information no t available 08/21/2020 Seat Belts Used Routinely Yes Information not available 08/21/2020 Smoke Alarm In Home Yes Information not available 08/21/2020 How Much Tobacco Do You Smoke? No Information not available 05/02/2017 Has Tobacco Cessation Counseling Been Provided? Yes Information not available 05/29/2023 On What Date Was Tobacco Cessation Counseling Provided? 05/29/2023 Information not available 05/29/2023 How Many Years Have You Smoked Tobacco? 0 Information not available 05/02/2017 Sex: Unknown Functional Status Question Answer Note LastModified by Organizat ion Details LastModified Time Do you use any illicit or recreational drugs? No Information not available 05/29/2023 Do you or have you ever used any other forms of tobacco or nicotine? No Information not available 05/29/2023 What is your level of alcohol consumption? Occasional Information not available 09/09/2018 Do you or have you ever used smokeless tobacco? Never used smokeless tobacco Information not available 08/21/2020 Do you or have you ever used e-cigarettes or vape? Never used electronic cigarettes Information not available 08/21/2020 Mental Status None recorded. Family History Nothing Reported. Medical History Condition Response Coronary Artery Disease N Other Y Atrial Fibrillation N High Blood Pressure Y Kidney or Bladder Problems N Thyroid Problems N GI Problems Y Depression N COPD N Blood Clots N Skin Problems N Anemia N Heart Attack (CO) N Anxiety Disorder N Diabetes N Muscle, Joint, or Bone Problems N Seizures/Epilepsy N Acid Reflux (GERD) N Cancer N Stroke N Asthma N Allergies N High Cholesterol N Hepatitis N Liver Disease N Headaches N Osteoporosis N Heart Failure N Immunizations Vaccine Type Date Status Note Provider Nam e and Address Organization Details Recorded Time Influenza, split virus, quadrivalent, preservative 2 completed Raffy Milan MD Attn: Accounting,[address] [facility], [place], [address], [place] [facility] 09/28/2021 13:15:42 Hib, unspecified formulation 9 completed Adrienne Jackson, [place] null, [place] [facility] 05/29/2023 12:41:55 MMR 9 completed Adrienne Jackson, [place] [facility] 05/29/2023 12:41:56 MMR 2 completed Adrienne [place], [place] [facility] 05/29/2023 12:41:56 DTP 9 completed Adrienne [place], [place] [facility] 05/29/2023 12:41:56 DTP 8 completed Adrienne Jose Maria, [place] [facility] 05/29/2023 12:41:56 DTP 9 completed Adrienne Jose Maria, [place] [facility] 05/29/2023 12:41:56 DTP 2 completed Adrienne Jose Maria[place] [facility] 05/29/2023 12:41:56 DTP 7 completed Adrienne Jose Maria[place] [facility] 05/29/2023 12:41:56 OPV, trivalent 8 completed Adrienne Jackson, [place] [facility] 05/29/2023 12:41:56 OPV, trivalent 9 completed Adrienne [place], [place] [facility] 05/29/2023 12:41:56 OPV, trivalent 2 completed Adrienne Jose Maria, [place] [facility] 05/29/2023 12:41:56 OPV, trivalent 7 completed Adrienne [place] [facility] 05/29/2023 12:41:56 Hep B, adolescent or pediatric 7 completed Adrienne [place] [facility] 05/29/2023 12:41:56 Hep B, adolescent or pediatric 7 completed Adrienne Jose Maria[place] [facility] 05/29/2023 12:41:56 Hep B, adolescent or pediatric 6 completed Adrienne [place], [place] [facility] 05/29/2023 12:41:56 Tdap 0 completed Raffy Milan MD Attn: Accounting,[address] [facility], [place], [address], [facility] 05/02/2017 14:06:21 Influenza, split virus, quadrivalent, preservative 7 completed Raffy Milan MD Attn: Accounting,[address] [facility], [place], [address], [facility] 07/16/2017 12:12:49 Past Encounters Encounter ID Performer Location Encounter Start Date Encounter Closed Date Diagnosis/Indication Diagnosis SNOMED-CT Code Diagnosis ICD10 Code Diagnosis IMO Codes Diagnosis Note [id number] [facility] [address] [place] [id number] 05/02/2017 10:47:01 05/02/2017 15:27:53 Adult health examination 580337438 Z00.01 Primary er ectile dysfunction 203517565 N52.9 Start Viagra, side effects were discussed Benign ess ential hypertension 4456694 I10 History of aortic valve replacement 3013278210 100 Z95.4 On Coumadin, the PT/INR is managed by his cardiologi st Ulcerative colitis 16744 004 K51.90 [id number] [facility] [address] [place] [id number] 07/16/2017 11:40:33 07/16/2017 13:37:25 History of aortic valve repair 3228506792 10728 Z98.890 On Coumadin which his monitored by his cardiologi st Disorder o f lipid metabolism 639507246 E78.9 Discussed Ulcerative colitis 46944 004 K51.90 Impotence 378612651 N52. 9 [id number] MD Cira Garcia (Adult Med) [address] [place] [phone] 09/09/2018 12:09:15 09/10/2018 08:52:15 General examination of patient 799973408 Z00.01 Influenza vaccination declined 114036847 Z28.21 Benign ess ential hypertension 0379407 I10 Controlled at home but may be higher in the mornings.H e will monitor this closely, the goal is 130/80 and since he is yet to take his Carvedilol this morning, it may be premature to make any changes. Primary er ectile dysfunction 597052127 N52.9 Continue Viagra, side effects were discussed History of aortic valve replacement 0711436346 100 Z95.4 On Coumadin, the PT/INR is managed by his cardiologi st Prosthetic heart valve in situ 816499598 Z95.2 St Nomi's valve Aortic adriane ve regurgitation 50542053 I35.1 [id number] MD Cira Garcia (Adult Med) [address] [place] [id number] 08/21/2020 08:25:01 08/22/2020 10:49:03 Needs influenza immunization 159117143 Z28.3 He will be getting this when he sees his gastroente rolgist Immunization due 9063126 08 Z28.3 Tdap is due History of aortic valve replacement 3747467511 100 Z95.4 On Coumadin, the PT & INR is managed by his cardiologi st History of ulcerative colitis 431118086 Z87.19 General ex amination of patient 753083177 Z00.01 [id number] MD Cira Garcia (Adult Med) [address] [place] [id number] 09/28/2021 11:52:13 10/01/2021 09:44:27 Benign essential hypertension 2307796 I10 Primary er ectile dysfunction 452962722 N52.9 Discontinu e ViagraTry Vardenafil , side effects were discussed Immunization advised 310 428610 Z71.9 Adult heal th examination 468375878 Z00.01 [id number] MD Cira Garcia (Adult Med) [address] [place] [id number] 05/29/2023 12:11:40 05/30/2023 07:50:35 General examination of patient 179531584 Z00.01 Influenza vaccination declined 430553430 Z28.21 Blood in urine 03516515 R31.9 NL renal US 02/11/2022 02/01/2022H ematuria persists on the UA repeated on 01/18/2022U SI have called Mr Chappell and I have left a message on his VMHematuri a 12/04/2021 epeat UA Weight loss 00907651 R63 .4 Intentiona l [id number] MD Cira Garcia (Adult Med) [address] [place] [id number] 10/08/2024 11:27:43 10/16/2024 09:44:38 General examination of patient 768712610 Z00.01 Unintentio nal weight gain 8233717122 54039 R63.5 Primary er ectile dysfunction 631991505 N52.9 He now prefers Viagra Malaise and fatigue 2717 68272 R53.83 Proteinuria 17941277 R80 .9 Health Concerns Section Related Observation LastModified by Organization Detai ls LastModified Time None Recorded Concern Status LastModified by Organization Details LastModified Time None Recorded Advance Directives Directive None Recorded Payers Insurance Date Sequence Insurance Name Policy Number Policy Joseph Covered Member ID Joseph Member ID Guarantor Name 10/16/2024 1 [facility] [id number] Siva Chappell [id number] Siva Chappell 10/08/2024 1 [place] [id number] Siva Chappell [id number] Siva Chappell 10/08/2024 1 [place] [id number] Siva Chappell [id number] Siva Chappell 10/08/2024 1 [facility] [id number] Siva Chappell [id number] Siva Chappell 10/08/2024 2 [employer] [id number] Siva Chappell [id number] Siva Chappell 10/08/2024 1 [facility] (EPO) [id number] Siva Chappell [id number] Siva Chappell 10/08/2024 1 [facility] [id number] Siva Chappell [id number] Siva Chappell Notes Date Note Type Note Provider Name and Address Organization Details Recorded Time 09/09/2018 text/html Hypertension F/UReported by PatientHPIFor associated symptoms, patient reportsno dizziness,no lightheadedness,no chest pain,no shortness of breath,no palpitations,no edema, andno calf pain with exertion. For lifestyle, patient reportsregular exerciseandlimiting/saman iding salt. For medications, patient reportstaking medications as directed,no side effects from medication, andchecks blood pressure at home, range: (130/80.mild elevation in the am).ROS as noted in the HPI Mr. Chappell returns, in the interim, he had a screening colonoscopy for his UC. 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 For lifestyle, patient reportsregular exerciseandlimiting/saman iding salt. For medications, patient reportstaking medications as directed,no side effects from medication, andchecks blood pressure at home, range: (120/85).ROS as noted in the HPI They cancelled and I rescheduledI had COVID back in March, me and my will get the shot after she has the baby He wants to switch Levitra but he is doing otherwise well He reports relatively well controlled blood pressure readings Raffy Milan MD Attn: Accounting, [address] [place], [address], [facility] 09/28/2021 20:12:32 05/29/2023 text/html ROS as noted in the HPI It's just my annual check up I guess Raffy Milan MD Attn: Accounting,[address] [place], [address], [facility] 05/29/2023 13:08:13 10/08/2024 text/html FatigueReported by PatientHPIFor timing, patient reportsworse. For quality, patient reportscontinuous. For severity, patient reportsnormal sleep patterns,normal exercise habits,normal activity,improving, andsevere. For context, patient reportssymptoms improve on weekends/vacationandno problems/stress at work or home. For modifying factors, patient reportsno new stressors in lifeandtaking vitamins. For associated symptoms, patient reportsno drug/alcohol withdrawal,no depression,no anxiety,no sleep disturbances,no snoring,periods of not breathing (apnea) have not been observed, andno recent change in weight.ROS as noted in the HPI Just a follow upI have been really tired In the interim, he has been following up with new agri business agent, Dr Melendez and his lead assistant manager Dr. Forman.. He complains of feeling tired despite an adequate amount of sleep. He may snore, but there are no reported apneic episodes or changes in his shift at work. There is no reported CP or SOB. He would like 12 Viagra a month Raffy Milan MD Attn: Accounting,[address] [facility], [place], [address], [facility] 10/08/2024 14:58:31
--- OUTSIDE RECORDS SUMMARY | 2025-06-11 23:26 | XMS_ITS | Clinical Summary ---
Author Organization [facility] [address] Address [address] [place] [address] Care Team Providers Care Red Mud Thickener Operator Name Role Phone Raffy Milan MD [...] Encounters Date Type Department Care Team Description 06/10/2025 Orders Only [facility] Cardiology [address] [place] [address] Brent Melendez MD 06/08/2025 Telephone [facility] Medical [facility] Cardiology [address] [place] [address] Tammy Thomas NP 04/01/2025 Anticoagulation Visit [facility] Cardiology at [address] [place] [address] Inez Wilkerson RN Aortic valve disorder (Primary Dx); Chronic anticoagulation from Last 3 Months Surgical History Surgery Date Site/Laterality Comments OTHER SURGICAL HISTORY 2006 AVR-mechanical OTHER SURGICAL HISTORY 2009 REdo AVR mechanical OTHER SURGICAL HISTORY Valve Replacement 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 Gender Identity Not on file Sexual Orientation Not on file Obstetrics History Last Filed Vital Signs Vital Sign Reading Time Taken Comments Blood Pressure 110/72 08/09/2024 10:40 AM UNIT CONTROLLER Pulse 92 08/09/2024 10:40 AM UNIT CONTROLLER Temperature 36.7 C (98 F) 07/26/2020 11:19 AM UNIT CONTROLLER Respiratory Rate 14 03/14/2017 10:21 AM CDT Oxygen Saturation 98% 08/09/2024 10:40 AM UNIT CONTROLLER Inhaled Oxygen Concentration - - Weight 66.2 kg (146 lb) 08/09/2024 10:40 AM UNIT CONTROLLER Height 165.1 cm (5' 5) 08/09/2024 10:40 AM UNIT CONTROLLER Body Mass Index 24.3 08/09/2024 10:40 AM UNIT CONTROLLER Plan of Treatment Health Maintenance Due Date [...] DOCUMENT SCAN Routine 06/08/2025 3:33 PM CDT PROTIME-INR Routine 04/01/2025 10:19 AM CDT Status post mechanical aortic valve replacement from Last 3 Months Results * Cardiology Document Scan (06/08/2025 3:33 PM CDT) Anatomical Region Laterality Modality Other Brent Melendez MD CV CARDIAC SERVICES PROC EDURES Final Result * (ABNORMAL) Protime-INR (04/01/2025 10:19 AM CDT) INR 1.8(H) Initial [facility] Comment: Reference Range 0.9-1.1 Moderate-intensity Warfarin Therapy 2.0-3.0 Higher-intensity Warfarin Therapy 3.0-4.0 PT 18.8(H) 9.0 - 11.5 sec [facility] Comment: For additional information, please refer to http://education.[employer]/faq/PPQ993 (This link is being provided for informational/ educational purposes only.) Blood 04/01/2025 10:1 9 AM CDT 04/01/2025 10:19 AM CDT Brent Melendez MD LAB BLOOD ORDERABLES Fin al Result [facility] [address] [place] [address] from Last 3 Months Insurance [facility] HMO/[place] [address] Care Teams Red Mud Thickener Operator Relationship Specialty Start Date End Date Raffy Milan MD [address] [place] [address] PCP - General Internal Medicine 07/06/18
--- OUTSIDE RECORDS SUMMARY | 2025-06-11 23:27 | XMS_ITS | Encounter Summary ---
Author Organization [facility] Address [address] [place] [address] Care Team Providers Care Orthotic/Prosthetic Clinician Name Role Phone Unavailable Primary Care Provider Unavailabl e Encounter Details Date Type Department Care Team (Late st Contact Info) Description 01/08/2024 Specialty Pharmacy [facility] - [address] [place] [address] Madiha Gaines, ANP [address] [facility] [address] [place] [address] Social History Tobacco Use Types Packs/Day Years Used Date Smoking Tobacco: Never Smokeless Tobacco: Never Alcohol Use Standard Drinks/Week Comments Not Currently 0 (1 standard drink = 0.6 oz pur e alcohol) Sex and Gender Information Value Date Recorded Sex Assigned at Not on file 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
[2025-06-11 23:31] LABS: Alanine Aminotransferase 26 U/L (6-50); Albumin Level 4.1 g/dL (3.5-5.1); Alkaline Phosphatase 58 U/L (38-126); Anion Gap 9 mmol/L (4-12); Aspartate Amino Transferase 40 U/L (17-59); Bilirubin,Total 0.6 mg/dL (0.2-1.3); Blood Urea Nitrogen 14 mg/dL (9-20); Calcium 8.6 mg/dL (8.4-10.2); Carbon Dioxide 24 mmol/L (22-30); Chloride 101 mmol/L (98-107); Estimated CRCL calculation 65 ml/min; Estimated Glomerular Filt Rate > 60; Glucose 157 mg/dL (65-110); Lipase 157 U/L (23-300); Potassium 3.7 mmol/L (3.4-5.0); Sodium 134 mmol/L (137-145); Total Protein 7.7 g/dL (6.3-8.2)
[2025-06-11 23:45] LABS: Troponin I 1.040 ng/mL (0.000-0.034)
[2025-06-11 23:48] LABS: Add Urine Microscopic? NO; Appearance Urine Clear (Clear); Glucose Urine UA Negative (Negative); Leukocyte Esterase Ur Negative LEU/UL (Negative); Nitrate Urine Negative (Negative); Specific Grav Ur 1.010 (1.001-1.035)
[2025-06-12] VITALS (14 sets, daily range): BP systolic 94–132; BP diastolic 65–91; PULSE 100–122; RESP 19–33; TEMP 36.5; O2SAT 89–97
[2025-06-12 00:24] LABS: Influenza A QL RT-PCR Negative (Negative); Influenza B QL RT-PCR Negative (Negative); RSV RNA, RT-PCR Negative (Negative); SARS-CoV-2 RNA PCR Negative (Negative)
[2025-06-12 00:45] LABS: NT Pro B Type Natriuretic Pept 6880 pg/mL (19.9-100)
[2025-06-12 01:10] LABS: Cannabinoid Screen Urine Negative (Negative)
[2025-06-12] MEDS: HEPARIN SOD/D5W 100 UNITS/ML 25,000 UNITS/250 ML BAG 8 UNITS IV CONT (01:23)
[2025-06-12] MEDS: FUROSEMIDE INJ 40 MG/4 ML VIAL 20 MG IV PUSH (01:37)
[2025-06-12] MEDS: cefTRIAXone 1 GM in SODIUM CHLORIDE 0.9% IV 50 ML 100 ML IVPB (02:08)
[2025-06-12] MEDS: AZITHROMYCIN 500 MG TABLET PO (02:09)
[2025-06-12 02:13] LABS: CRP 0.8 mg/dL (<1.0)
[2025-06-12 02:21] LABS: Troponin I 1.280 ng/mL (0.000-0.034)
[2025-06-12] MEDS: VANCOMYCIN 1,750 MG/NS 500 ML 1,750 MG/500 ML BAG 250 MG IVPB (03:43)
[2025-06-12 04:08] LABS: MRSA (PCR) NOT DETECTED (NOT DETECTE)
== END 2025-06-12 04:10 | disposition short-term general hospital (02) ==
PROVIDERS: Emergency Provider Student in an Organized Health Care Education/Training Program; PCP Internal Medicine Infectious Disease
DX: I21.4 Non-ST elevation (NSTEMI) myocardial infarction (principal); J18.9 Pneumonia, unspecified organism; I50.9 Heart failure, unspecified; I51.7 Cardiomegaly; D72.829 Elevated white blood cell count, unspecified; R74.02 Elevation of levels of lactic acid dehydrogenase [LDH]; E87.1 Hypo-osmolality and hyponatremia; R73.9 Hyperglycemia, unspecified; R07.2 Precordial pain; Z20.822 Contact with and (suspected) exposure to COVID-19; I11.0 Hypertensive heart disease with heart failure; I25.2 Old myocardial infarction; Z95.2 Presence of prosthetic heart valve; Z87.891 Personal history of nicotine dependence; Z79.01 Long term (current) use of anticoagulants; Z79.899 Other long term (current) drug therapy; Z79.620 Long term (current) use of immunosuppressive biologic; R00.0 Tachycardia, unspecified; I45.10 Unspecified right bundle-branch block; R94.31 Abnormal electrocardiogram [ECG] [EKG]
CPT/HCPCS: 36415; 71045; 80053; 80307; 81003; 83010; 83605; 83615; 83690; 83880; 84484; 85025; 85380; 85610; 85730; 86140; 87637; 87641; 93005; 96365; 96367; 96375; 99285; A9270; J0696; J1644; J1938; J3373